=== PATIENT | male | born 1955 | race Caucasian/White ===

== ENCOUNTER 2022-06-16 14:49 | Inpatient (IN) | payer MEDICARE, MEDICAID, SELFPAY ==
--- NOTE | ~2022-06-16 | XR_ITS ---
EXAMINATION: XR ERCP DATE: 06/19/2022 13:58 INDICATION: Choledocholithiasis. TECHNIQUE: 4 spot fluoroscopic images of the right upper quadrant were obtained during endoscopic ret rograde cholangiopancreatography (ERCP). Fluoroscopy exposure time was 161 seconds. COMPARISON: MRCP 06/16/2022 FINDINGS: The endoscope is in the second portion the duodenum. There is opacification of the biliary tree with mild intrahepatic and extrahepatic biliary duct dilatation. There is balloon sweeping of th e common duct. IMPRESSION: 1. Mild intrahepatic and extrahepatic biliary duct dilatation. Please refer to the ERCP procedure not e for additional details. Reviewed, dictated and finalized at location A. IMPRESSION: 1. Mild intrahepatic and extrahepatic biliary duct dilatation. Please refer to the ERCP procedure note for additional details.
--- NOTE | ~2022-06-16 | XR_ITS ---
XR chest 1V DATE: 06/16/2022 13:02 INDICATION: Pneumonia follow-up TECHNIQUE: AP chest COMPARISON: None FINDINGS: This is a limited single AP view; the lung apices are partially obscured by overlying chin. Probable cardiomegaly; heart size is not optimally evaluated on AP projection because of magnificatio n. No pulmonary infiltrate or consolidation, pleural effusion or pulmonary vascular congestion or pneumo thorax is detected. IMPRESSION: Limited single portable AP view; cardiomegaly Reviewed, dictated and finalized at location B.
--- NOTE | ~2022-06-16 | MR_ITS ---
EXAMINATION: MR MRCP wo/w con/w 3D wo ind DATE: 06/16/2022 13:03 INDICATION: Abnormal liver function tests. Right upper quadrant abdominal pain. TECHNIQUE: Magnetic resonance imaging (MRI) of the abdomen was performed without and with 20 mL Multi Noam intravenous contrast. Sequences included coronal T2-weighted FS FSE, coronal T2-weighted FSE, a xial T1-weighted LAVA, coronal FS FIESTA, axial dual-echo T1-weighted SPGR, coronal lava-FLEX, sagitt al T2-weighted FSE, axial T2-weighted FSE, and axial DWI. Thick-slab T2-weighted FSE images were obta ined for magnetic resonance cholangiopancreatography (MRCP). Maximum intensity projection 3-D reconst ructions of the volumetric data were created by the technologist. Postcontrast sequences included cor onal LAVA-flex and time course of axial T1-weighted LAVA. COMPARISON: None. FINDINGS: ABDOMEN MRI: There is mild intrahepatic biliary duct dilatation. The gallbladder is normal in size an d contains gallstones. The spleen is normal. There is fat stranding around the pancreas, consistent w ith acute interstitial pancreatitis. The adrenal glands and kidneys are normal. There are no dilated loops of bowel. There are no pathologically enlarged lymph nodes. There is no free intraperitoneal fl uid. ABDOMEN MRCP: The common duct is dilated to 10 mm. There is a 4 mm stone in the common bile duct. IMPRESSION: 1. 4 mm stone in the common bile duct with mild intrahepatic and extrahepatic biliary duct dilatation . 2. Cholelithiasis. 3. Acute interstitial pancreatitis. Reviewed, dictated and finalized at location A. IMPRESSION: 1. 4 mm stone in the common bile duct with mild intrahepatic and extrahepatic b iliary duct dilatation. 2. Cholelithiasis. 3. Acute interstitial pancreatitis.
--- NOTE | 2022-06-16 10:10 | ADMGEN ---
This patient, Wilder Fabian, was admitted to Medical Room 256-. Patient/family oriented to hospital policies and general routines including ID bracelet, bed and alarms, visiting hours, pain management, procedures, bathroom and other care routines, personal items, smoking policy, room service/diet, and visiting hours. Information on how to activate the Rapid Response Team has been discussed. Patient/Family are encouraged to report perceived risks to care and to ask questions if they do not understand what they are told or what they should do.
[2022-06-16 10:11] VITALS: BP 123/63; PULSE 86; RESP 16; TEMP 36.6; O2SAT 100
[2022-06-16 12:00] VITALS: BP 125/50; PULSE 102; RESP 14; TEMP 36.4; O2SAT 100
--- NOTE | 2022-06-16 12:11 | PM.IMHP ---
H&P: HPI History of Present Illness Date/Time: 06/16/22 12:11 Chief Complaint: Abdominal pain Narrative: 66-year-old male with mental retardation, seizure disorder, history of left lower extremity DVT is admitted for as a transfer from [facility] where he was hospitalized from June 09 to June 16 with working diagnosis of transaminitis, acute cholecystitis/choledocholithiasis, elevated troponin. At the time of admission ALT 196, AST 329, total bilirubin 2.2, INR 1.6, WBC 6.7, troponin was 0.054. Per review of medical record troponin elevation was flat and considered to be noncardiac in origin. Transaminitis was originally attributed to possible cholecystitis cholelithiasis, but patient did have a positive hepatitis A IgM laboratory results and this was placed as a differential diagnosis. MRCP demonstrated a small stone in the common bile duct and transfer to [facility] for ERCP was recommended. Medical record also made note that LFT should be repeated in a couple of weeks and lap cholecystectomy would be offered after that if needed. Today, patient is sitting up in bed brother is bedside history is mostly provided by brother due to patient's mental status. He reports that on SundayJune 09 his brother was working at [employer] (his place of employment that provides work opportunities for people with special needs). While at work he was noted to have 2 seizure episodes and complained of burning epigastrium substernal pain. He had an associated episode of vomiting x1. After this incident patient was very lethargic and confused. Was taken to [facility] for further evaluation.(see above documentation) at this time patient is complaining of ongoing epigastric pain and substernal burning. He denies nausea, vomiting, chest pain, shortness of breath, headache, or other symptoms. Review of Systems Review of Systems: All systems reviewed & are unremarkable except as noted in HPI and below PMFSH Past Medical History Medical History (Updated 06/16/22 @ 14:48 by Jonelle Harkins MD) Abnormal finding of biliary tract History of Coumadin therapy History of deep venous thrombosis (DVT) of distal vein of left lower extremity Intellectual disability Seizure disorder Volvulus Surgical History Surgical History (Updated 06/16/22 @ 13:58 by Jonelle Harkins MD) Hx of abdominal surgery Social History Social History (Updated 06/16/22 @ 15:04 by Jonelle Harkins MD) Social History: lives w brother, good social support Smoking status: Never smoker Alcohol intake: never Substance use: never Spiritual care concerns: No Meds Home Medications and Allergies Home Medications Medication Instructions Recorded Confirmed Type furosemide 40 mg tablet 40 mg PO DAILY 06/16/22 06/16/22 History phenytoin sodium extended 100 mg 100 mg PO TID 06/16/22 06/16/22 History capsule potassium chloride 20 mEq 20 meq PO DAILY 06/16/22 06/16/22 History tablet,extended release warfarin 5 mg tablet 5 mg PO DIRECTED 06/16/22 06/16/22 History Allergies Allergy/AdvReac Type Severity Reaction Status Date / Time No Known Allergies Allergy Verified 06/16/22 14:18 Vital Signs Vital Signs - 24 hr 06/16/22 10:11 06/16/22 12:00 Temperature 97.9 F 97.5 F L Pulse Rate 86 102 H Respiratory Rate 16 14 Blood Pressure 123/63 125/50 L Pulse Oximetry 100 100 Exam Const: General: uncomfortable Other: cooperative HENMT: General nose exam: Normal nares present Mouth: Yes moist mucous membranes Eyes: General: appearance normal, both eyes and all related structures EOM: EOMs intact bilaterally Neck: Neck: supple and no JVD Thyroid: thyroid normal Resp: Effort & Inspection: normal respiratory effort Auscultation: crackles (at bases ) bilateral Cardio: Rate: regular rate Rhythm: regular rhythm GI: GI Palp: Yes Soft to palpation, Yes Tenderness to palpation pres
[2022-06-16 13:49] LABS: Basophils Percent Auto 0.4 % (0.2-1.2); Eosinophils Absolute Auto 0.1 K/mm3 (0-0.3); Eosinophils Percent Auto 0.7 % (0-4.4); Hematocrit 43.9 % (42.0-52.0); Hemoglobin 14.4 g/dL (14.0-18.0); Immature Granulocyte Absolute 0.04 K/mm3 (0.00-0.031); Immature Granulocyte Percent A 0.4 % (0-0.5); Lymphocytes Absolute Auto 1.01 K/mm3 (0.9-3.2); Lymphocytes Percent Auto 9.1 % (18.3-44.2); Mean Corpuscular HGB Conc 32.8 g/dl (32-36); Mean Corpuscular Hemoglobin 28.6 pg (26-34); Mean Corpuscular Volume 87.3 fl (80-100); Mean Platelet Volume 8.9 fl (7.4-10.4); Monocytes Absolute Auto 0.6 K/mm3 (0.1-0.6); Monocytes Percent Auto 5.6 % (2.6-8.5); Neutrophils Absolute Auto 9.3 K/mm3 (1.3-6.7); Neutrophils Percent Auto 83.8 % (45.5-73.1); Platelet Count Result 339 k/mm3 (150-375); Red Blood Count 5.03 M/mm3 (4.6-6.20); Red Cell Distribution Width 15.8 % (11.5-14.5); White Blood Count 11.1 K/mm3 (4.5-10.0)
[2022-06-16 14:00] LABS: INR 1.7; Prothrombin Time 18.9 Seconds (11.1-14.7)
[2022-06-16 14:07] LABS: NT Pro B Type Natriuretic Pept 219 pg/mL (5-100)
--- NOTE | 2022-06-16 14:24 | WPDGICN ---
Assessment and Plan Assessment and plan (1) Transaminitis: Code(s): R74.01 - Elevation of levels of liver transaminase levels Status: Acute Assessment and Plan: noted + HAV Igm at another hospital- this can explain elevated liver enzymes and consistent with acute hepatitis A will monitor liver enzymes and repeat blood work again there is also concern of cholelithiasis and outside imaging can not rule out small stone in bile duct, we will MRCP to reassess and exclude stone- if that is the case then entertain idea of ercp keep holding coumadin in case he will need to get intervention (also get INR) (2) Cholelithiases: Code(s): K80.20 - Calculus of gallbladder without cholecystitis without obstruction Status: Acute (3) Abnormal finding of biliary tract: Code(s): R19.8 - Other specified symptoms and signs involving the digestive system and abdomen Status: Acute Assessment and Plan: get mrcp to rule out choledocholithiasis (4) Abdominal pain: Code(s): R10.9 - Unspecified abdominal pain Status: Acute Assessment and Plan: could be from hepatitis A repeat blood work and will get imagin (5) Hepatitis A: Code(s): B15.9 - Hepatitis A without hepatic coma Status: Acute (6) Intellectual disability: Code(s): F79 - Unspecified intellectual disabilities Status: Acute (7) Seizure disorder: Code(s): G40.909 - Epilepsy, unspecified, not intractable, without status epilepticus Status: Acute (8) History of deep venous thrombosis (DVT) of distal vein of left lower extremity: Code(s): Z86.718 - Personal history of other venous thrombosis and embolism Status: Acute (9) History of Coumadin therapy: Code(s): Z92.29 - Personal history of other drug therapy Status: Acute GI Consult Note Consult date/time: 06/16/22 14:24 Reason for consult: elevated liver enzymes HPI: Wilder Fabian is a 66 year old male with mental retardation, use of coumadin who was taken to [facility] [place] on June 09 and stayed until today. He is poor historian but says that started with upper abdominal pain. Work up revealed elevated liver enzymes, at the time of admission ALT 196, AST 329, total bilirubin 2.2, INR 1.6, WBC 6.7, troponin was 0.054. CT scan showed possible acute cholecystitis.?Per review of medical record troponin elevation was flat and considered to be noncardiac in origin.? Transaminitis was originally attributed to possible cholecystitis and cholelithiasis, but also noted that had a positive hepatitis A IgM, MRCP day of admission showed possible small stone? in the common bile duct and transfer to [facility] because not GI physician on staff. Review of Systems Constitutional: Constitutional: Denies difficulty sleeping Eyes: Eyes: Denies blurry vision ENT: Reports Normal hearing present Cardiovascular: Cardiovascular: Denies chest pain Respiratory: Respiratory: Denies cough Gastrointestinal: Gastrointestinal: Reports abdominal pain and Reports nausea Genitourinary: Genitourinary: Denies hematuria Musculoskeletal: Musculoskeletal: Denies back pain Neurologic: Denies Abnormal speech present Psychiatric: Psychiatric: Reports anxiety [facility] Past Medical History Medical History (Updated 06/16/22 @ 14:32 by Ernesto Bermudez MD) Abnormal finding of biliary tract History of Coumadin therapy History of deep venous thrombosis (DVT) of distal vein of left lower extremity Intellectual disability Seizure disorder Volvulus Surgical History Surgical History (Updated 06/16/22 @ 13:58 by Jonelle Harkins MD) Hx of abdominal surgery Social History Social History Smoking status: Never smoker Spiritual care concerns: No Meds Home Medications and Allergies Home Medications Medication Instructions Recorded Confirmed Type furosemide 40 mg tablet 40 mg PO DAILY 06/16/22 06/16/22 His
[2022-06-16 14:32] LABS: Alanine Aminotransferase 552 U/L (6-50); Albumin Level 3.9 g/dL (3.5-5.1); Alkaline Phosphatase 371 U/L (38-126); Anion Gap 10 mmol/L (8-16); Aspartate Amino Transferase 371 U/L (17-59); Bilirubin Direct 2.9 mg/dL (0-0.3); Bilirubin,Total 6.1 mg/dL (0.2-1.3); Blood Urea Nitrogen 5 mg/dL (9-20); Calcium 9.3 mg/dL (8.4-10.2); Carbon Dioxide 24 mmol/L (22-30); Chloride 99 mmol/L (98-107); Estimated CRCL calculation 110 ml/min; Estimated Glomerular Filt Rate > 60; Glucose 141 mg/dL (65-110); Potassium 3.9 mmol/L (3.4-5.0); Sodium 133 mmol/L (137-145)
[2022-06-16] MEDS: ENOXAPARIN 120 MG/0.8 ML SYRINGE 115 MG SUB-Q (14:40)
[2022-06-16] MEDS: PANTOPRAZOLE SODIUM IV 40 MG VIAL IV PUSH (14:41)
[2022-06-16 15:16] LABS: Lipase 12658 U/L (23-300)
[2022-06-16 16:00] VITALS: PULSE 93
[2022-06-16] MEDS: HYDROcodone/acetaminophen (*CRX) 5-325 MG TABLET 1 TAB PO (16:12)
[2022-06-16] MEDS: LACTATED RINGERS 1,000 ML 100 ML IV CONT (16:13)
[2022-06-16] MEDS: PHENYTOIN SODIUM 100 MG EXTENDED RELEASE CAP PO (16:14)
[2022-06-16] MEDS: DOCUSATE SODIUM 100 MG CAPSULE PO (16:25)
[2022-06-16 16:40] LABS: HAV RESULT Negative (Negative)
[2022-06-16 17:21] VITALS: BP 142/60; PULSE 90; RESP 16; TEMP 36.3; O2SAT 99
[2022-06-16 19:18] VITALS: BP 130/51; PULSE 100; RESP 20; TEMP 36.9; O2SAT 96
[2022-06-16 20:00] VITALS: PULSE 89
[2022-06-17] VITALS (9 sets, daily range): BP systolic 116–158; BP diastolic 51–92; PULSE 91–122; RESP 20–26; TEMP 36.6–37.1; O2SAT 95–100
[2022-06-17] MEDS: LACTATED RINGERS 1,000 ML 100 ML IV CONT (03:22)
[2022-06-17] MEDS: ENOXAPARIN 120 MG/0.8 ML SYRINGE 115 MG SUB-Q ×2 (05:10→17:06)
[2022-06-17 06:29] LABS: Basophils Absolute Auto 0.1 K/mm3 (0.0-0.1); Basophils Percent Auto 0.6 % (0.2-1.2); Eosinophils Absolute Auto 0.2 K/mm3 (0-0.3); Eosinophils Percent Auto 1.8 % (0-4.4); Hematocrit 45.3 % (42.0-52.0); Hemoglobin 14.2 g/dL (14.0-18.0); Immature Granulocyte Absolute 0.07 K/mm3 (0.00-0.031); Immature Granulocyte Percent A 0.6 % (0-0.5); Lymphocytes Absolute Auto 1.19 K/mm3 (0.9-3.2); Lymphocytes Percent Auto 9.6 % (18.3-44.2); Mean Corpuscular HGB Conc 31.3 g/dl (32-36); Mean Corpuscular Hemoglobin 28.6 pg (26-34); Mean Corpuscular Volume 91.3 fl (80-100); Mean Platelet Volume 9.1 fl (7.4-10.4); Monocytes Absolute Auto 1.1 K/mm3 (0.1-0.6); Monocytes Percent Auto 9.2 % (2.6-8.5); Neutrophils Absolute Auto 9.6 K/mm3 (1.3-6.7); Neutrophils Percent Auto 78.2 % (45.5-73.1); Platelet Count Result 306 k/mm3 (150-375); Red Blood Count 4.96 M/mm3 (4.6-6.20); Red Cell Distribution Width 16.5 % (11.5-14.5); White Blood Count 12.3 K/mm3 (4.5-10.0)
[2022-06-17 06:38] LABS: Hemoglobin A1C 5.4 % (<5.7)
[2022-06-17 07:02] LABS: Alanine Aminotransferase 390 U/L (6-50); Albumin Level 3.4 g/dL (3.5-5.1); Alkaline Phosphatase 336 U/L (38-126); Anion Gap 12 mmol/L (8-16); Aspartate Amino Transferase 257 U/L (17-59); Bilirubin,Total 7.5 mg/dL (0.2-1.3); Blood Urea Nitrogen 6 mg/dL (9-20); Calcium 8.7 mg/dL (8.4-10.2); Carbon Dioxide 19 mmol/L (22-30); Chloride 102 mmol/L (98-107); Estimated CRCL calculation 110 ml/min; Estimated Glomerular Filt Rate > 60; Glucose 114 mg/dL (65-110); Potassium 4.8 mmol/L (3.4-5.0); Sodium 133 mmol/L (137-145)
[2022-06-17 07:28] LABS: CRP 16.6 mg/dL (<1.0)
--- NOTE | 2022-06-17 07:33 | PM.IMPN ---
Progress Note: A&P Assessment and Plan (1) Acute gallstone pancreatitis: Code(s): K85.10 - Biliary acute pancreatitis without necrosis or infection Status: Acute (2) Choledocholithiasis with acute cholecystitis with obstruction: Code(s): K80.43 - Calculus of bile duct with acute cholecystitis with obstruction Status: Acute (3) Abnormal finding of biliary tract: Code(s): R19.8 - Other specified symptoms and signs involving the digestive system and abdomen Status: Acute (4) History of Coumadin therapy: Code(s): Z92.29 - Personal history of other drug therapy Status: Acute (5) Abdominal pain: Code(s): R10.9 - Unspecified abdominal pain Status: Acute (6) Hepatitis A: Code(s): B15.9 - Hepatitis A without hepatic coma Status: Acute (7) Transaminitis: Code(s): R74.01 - Elevation of levels of liver transaminase levels Status: Acute (8) Intellectual disability: Code(s): F79 - Unspecified intellectual disabilities Status: Acute (9) Seizure disorder: Code(s): G40.909 - Epilepsy, unspecified, not intractable, without status epilepticus Status: Acute (10) History of deep venous thrombosis (DVT) of distal vein of left lower extremity: Code(s): Z86.718 - Personal history of other venous thrombosis and embolism Status: Acute Plan 66-year-old male transferred from [facility] for ongoing treatment of suspected choledocholithiasis/cholecystitis. Outside facility requesting ERCP. Admit to med surge Diet NPO except for meds HIDA scan MRCP Zofran Tylenol, Percocet, morphine Pantoprazole b.i.d. Zosyn t.i.d. LR 100 cc/hour Docusate b.i.d. Blood cultures CBC Lipase CMP Direct bilirubin Hepatitis A PT INR Alk-phos BNP Magnesium Consult GI Activity up with assistance 06/17/22 pt w initial PE findings consistent w Acute Pancreatitis confirmed on labs his enzymes are again down trending and today he is w benign abd exam. I strongly suspect he has passed another stone. Unclear if he has cholecystitis or just choledocholithiasis w pancreatic injury. His WBC remains elevated. GI following, defer surgical consent to GI if they believe pt should be evaluated for lap medina cont current care serial labs pain medications PRN cont home meds LMWH substitiued for Warfarin until dc planning initiated IVFs abx GI recs appreciated Subjective Date/time seen: 06/17/22 07:33 pt feeling much better today, denies epigstric pain, per RN coloring in his book, has not reported pain. Review of Systems Review of Systems: All systems reviewed & are unremarkable except as noted in HPI and below Exam Const: General: uncomfortable Other: cooperative HENMT: General nose exam: Normal nares present Mouth: Yes moist mucous membranes Eyes: General: appearance normal, both eyes and all related structures EOM: EOMs intact bilaterally Neck: Neck: supple and no JVD Thyroid: thyroid normal Resp: Effort & Inspection: normal respiratory effort Auscultation: crackles (at bases ) bilateral Cardio: Rate: regular rate Rhythm: regular rhythm GI: Other: soft, nontender, (prior exam pt was exquisitely tender in Epigstric area), ND Skin: General skin exam: normal color, no rashes or lesions noted and no erythema Wounds: no wounds Neuro: Speech: normal speech Motor exam (neuro): Normal motor muscle tone present throughout and abnormal movements noted Extrem: General: normal to inspection Psych: Mental Status: mental status grossly abnormal (pt w intellectual delay unable to eval psych but mood and affect congruent ) Objective Data Vital Signs Vital Signs: Vital Signs - 24 hr 06/16/22 10:11 06/16/22 12:00 06/16/22 10:10 Temperature 97.9 F 97.5 F L Pulse Rate 86 102 H Respiratory Rate 16 14 Blood Pressure 123/63 125/50 L Pulse Oximetry 100 100 Oxygen Delivery Ro
--- NOTE | 2022-06-17 08:38 | WPDGIPROGNO ---
Progress Note: A&P Assessment and Plan (1) Transaminitis: Code(s): R74.01 - Elevation of levels of liver transaminase levels Status: Acute Assessment and Plan: Although he was found have positive hepatitis a serology at [facility], he also was noted to have a stone in the bile duct. It is my understanding that he was referred here to have an ERCP. For that reason Coumadin is being held. (2) Abnormal finding of biliary tract: Code(s): R19.8 - Other specified symptoms and signs involving the digestive system and abdomen Status: Acute Assessment and Plan: MRCP done yesterday does confirm common bile duct stone. He also has pancreatitis. (3) Abdominal pain: Code(s): R10.9 - Unspecified abdominal pain Status: Acute Assessment and Plan: Lipase came back extremely elevated, therefore his pain is likely due primarily to pancreatitis and or choledocholithiasis (4) Hepatitis A: Code(s): B15.9 - Hepatitis A without hepatic coma Status: Acute (5) Seizure disorder: Code(s): G40.909 - Epilepsy, unspecified, not intractable, without status epilepticus Status: Acute (6) History of deep venous thrombosis (DVT) of distal vein of left lower extremity: Code(s): Z86.718 - Personal history of other venous thrombosis and embolism Status: Acute Assessment and Plan: he has been on Coumadin but this is being held so that ERCP can be done. (7) History of Coumadin therapy: Code(s): Z92.29 - Personal history of other drug therapy Status: Acute (8) Acute gallstone pancreatitis: Code(s): K85.10 - Biliary acute pancreatitis without necrosis or infection Status: Acute Assessment and Plan: Lipase was extremely elevated yesterday. I will order repeat for today. Subjective Date/time seen: 06/17/22 08:38 The patient is resting comfortably. He has no complaints at the present time. He admits that his belly is sore. He is unable to tell me if his urine is dark except that it sometimes is I told that he has gallstones in his bile duct that will need to be removed and that tentatively is scheduled for Sunday. Exam Const: General: comfortable HENMT: General nose exam: Normal nares present Eyes: General: appearance normal, both eyes and all related structures Neck: Neck: supple Resp: Auscultation: clear to auscultation bilaterally Cardio: Rate: regular rate GI: Auscultation: normal bowel sounds Skin: Other: jaundice Neuro: Cranial nerves: Yes Normal hearing present Speech: normal speech and No Abnormal speech present Motor exam (neuro): 5/5 motor strength present throughout Extrem: General: normal to inspection Objective Data Vital Signs Vital Signs: Vital Signs - 24 hr 06/16/22 10:11 06/16/22 12:00 06/16/22 10:10 Temperature 36.6 C 36.4 C L Pulse Rate 86 102 H Respiratory Rate 16 14 Blood Pressure 123/63 125/50 L Pulse Oximetry 100 100 Oxygen Delivery Room Air 06/16/22 16:00 06/16/22 17:21 06/16/22 19:18 Temperature 36.3 C L 36.9 C Pulse Rate 93 90 100 Respiratory Rate 16 20 Blood Pressure 142/60 H 130/51 L Pulse Oximetry 99 96 Oxygen Delivery 06/16/22 20:00 06/16/22 20:00 06/17/22 00:00 Temperature Pulse Rate 89 91 Respiratory Rate Blood Pressure Pulse Oximetry Oxygen Delivery Room Air 06/17/22 04:07 06/17/22 04:00 Temperature 37.1 C Pulse Rate 102 H 104 H Respiratory Rate 26 H Blood Pressure 144/56 H Pulse Oximetry 99 Oxygen Delivery Intake/Output Intake/Output: Intake & Output 06/14/22 06/15/22 06/16/22 06/17/22 23:59 23:59 23:59 23:59 Intake Total 100 1050 Output Total 150 400 Balance -50 650 Meds/Results Medications: Active Medications Generic Name Dose Route Start Last Admin Trade Name Freq PRN Reason Stop Dose Admin Al Hydrox/Mg Hydrox/Simethicone 30 ml 06/16/22 14:49 Mag Hy
[2022-06-17 08:53] LABS: INR 1.8; Prothrombin Time 20.4 Seconds (11.1-14.7)
[2022-06-17 09:05] LABS: Lipase 2913 U/L (23-300)
[2022-06-17] MEDS: LACTATED RINGERS 1,000 ML 150 ML IV CONT ×3 (09:06→19:52)
[2022-06-17] MEDS: PHENYTOIN SODIUM 100 MG EXTENDED RELEASE CAP PO ×3 (09:06→17:06)
[2022-06-17] MEDS: DOCUSATE SODIUM 100 MG CAPSULE PO (09:06)
[2022-06-17] MEDS: PANTOPRAZOLE SODIUM IV 40 MG VIAL IV PUSH (09:06)
[2022-06-17 11:21] LABS: Cholesterol 203 mg/dL (0-200); HDL Direct 19 mg/dL; Triglycerides 146 mg/dL (<150)
[2022-06-17 11:32] LABS: LDL Cholesterol Direct 131 mg/dL
[2022-06-18] VITALS (9 sets, daily range): BP systolic 113–132; BP diastolic 46–66; PULSE 73–113; RESP 18–20; TEMP 36.1–36.9; O2SAT 95–98
--- NOTE | 2022-06-18 00:08 | PC.NURSE ---
Pt ambulated to bathroom with refrigeration technician and had a bowel movement. Upon standing up from the toilet the pt stated he needed to sit down and proceeded to have an approximately 30 second period of unresponsiveness characterized by blank staring. After 30 seconds he started responding again and stated he felt better. Patient's blood pressure was recorded after not responding and was 98/51. After getting the patient back to the bed and lying down his blood pressure was recorded at 116/51. Dr. Oliveros notified.
[2022-06-18] MEDS: LACTATED RINGERS 1,000 ML 150 ML IV CONT (03:08)
[2022-06-18] MEDS: ENOXAPARIN 120 MG/0.8 ML SYRINGE 115 MG SUB-Q ×2 (05:00→17:14)
[2022-06-18 05:52] LABS: Alanine Aminotransferase 281 U/L (6-50); Albumin Level 3.3 g/dL (3.5-5.1); Alkaline Phosphatase 269 U/L (38-126); Anion Gap 7 mmol/L (8-16); Aspartate Amino Transferase 88 U/L (17-59); Bilirubin,Total 3.8 mg/dL (0.2-1.3); Blood Urea Nitrogen 9 mg/dL (9-20); Calcium 9.2 mg/dL (8.4-10.2); Carbon Dioxide 25 mmol/L (22-30); Chloride 100 mmol/L (98-107); Estimated CRCL calculation 110 ml/min; Estimated Glomerular Filt Rate > 60; Glucose 127 mg/dL (65-110); Lipase 509 U/L (23-300); Potassium 3.7 mmol/L (3.4-5.0); Sodium 132 mmol/L (137-145)
[2022-06-18 06:27] LABS: Basophils Absolute Auto 0.1 K/mm3 (0.0-0.1); Basophils Percent Auto 0.5 % (0.2-1.2); Eosinophils Absolute Auto 0.4 K/mm3 (0-0.3); Eosinophils Percent Auto 3.8 % (0-4.4); Hematocrit 38.8 % (42.0-52.0); Hemoglobin 12.7 g/dL (14.0-18.0); Immature Granulocyte Absolute 0.08 K/mm3 (0.00-0.031); Immature Granulocyte Percent A 0.7 % (0-0.5); Lymphocytes Percent Auto 15.5 % (18.3-44.2); Mean Corpuscular HGB Conc 32.7 g/dl (32-36); Mean Corpuscular Hemoglobin 28.5 pg (26-34); Mean Corpuscular Volume 87.2 fl (80-100); Mean Platelet Volume 9.3 fl (7.4-10.4); Monocytes Absolute Auto 0.7 K/mm3 (0.1-0.6); Monocytes Percent Auto 6.6 % (2.6-8.5); Neutrophils Percent Auto 72.9 % (45.5-73.1); Platelet Count Result 323 k/mm3 (150-375); Red Blood Count 4.45 M/mm3 (4.6-6.20)
--- NOTE | 2022-06-18 07:57 | PC.NURSE ---
spoke with Dr. Ervin to confirm that ERCP will be on Sunday06/18/22 because pharmacy wanted to know when to order patient's suppository.
[2022-06-18] MEDS: ONDANSETRON INJ 4 MG/2 ML VIAL IV PUSH (08:06)
--- NOTE | 2022-06-18 08:09 | PM.IMPN ---
Progress Note: A&P Assessment and Plan (1) Acute gallstone pancreatitis: Code(s): K85.10 - Biliary acute pancreatitis without necrosis or infection Status: Acute (2) Choledocholithiasis with acute cholecystitis with obstruction: Code(s): K80.43 - Calculus of bile duct with acute cholecystitis with obstruction Status: Acute (3) Abnormal finding of biliary tract: Code(s): R19.8 - Other specified symptoms and signs involving the digestive system and abdomen Status: Acute (4) History of Coumadin therapy: Code(s): Z92.29 - Personal history of other drug therapy Status: Acute (5) Abdominal pain: Code(s): R10.9 - Unspecified abdominal pain Status: Acute (6) Hepatitis A: Code(s): B15.9 - Hepatitis A without hepatic coma Status: Acute (7) Transaminitis: Code(s): R74.01 - Elevation of levels of liver transaminase levels Status: Acute (8) Intellectual disability: Code(s): F79 - Unspecified intellectual disabilities Status: Acute (9) Seizure disorder: Code(s): G40.909 - Epilepsy, unspecified, not intractable, without status epilepticus Status: Acute (10) History of deep venous thrombosis (DVT) of distal vein of left lower extremity: Code(s): Z86.718 - Personal history of other venous thrombosis and embolism Status: Acute Plan 66-year-old male transferred from [facility] for ongoing treatment of suspected choledocholithiasis/cholecystitis. Outside facility requesting ERCP. Admit to med surge Diet NPO except for meds HIDA scan MRCP Zofran Tylenol, Percocet, morphine Pantoprazole b.i.d. Zosyn t.i.d. LR 100 cc/hour Docusate b.i.d. Blood cultures CBC Lipase CMP Direct bilirubin Hepatitis A PT INR Alk-phos BNP Magnesium Consult GI Activity up with assistance 06/17/22 pt w initial PE findings consistent w Acute Pancreatitis confirmed on labs his enzymes are again down trending and today he is w benign abd exam. I strongly suspect he has passed another stone. Unclear if he has cholecystitis or just choledocholithiasis w pancreatic injury. His WBC remains elevated. GI following, defer surgical consent to GI if they believe pt should be evaluated for lap medina cont current care serial labs pain medications PRN cont home meds LMWH substitiued for Warfarin until dc planning initiated IVFs abx GI recs appreciated 06/18/22 bilious vomiting approx 200cc per RN this am (not associated w medication administration) lipase and liver enzymes normalizing cont supportive care cont abx Zosyn IVFs run rate decreased to LR 75cchr cont NPO ERCP tomorrow Subjective Date/time seen: 06/18/22 08:09 pt w nausea this morning and placed back into NPO by GI, however, he reports he is feeling better at time of my visit per RN vomitus was bilious appearing Review of Systems Review of Systems: All systems reviewed & are unremarkable except as noted in HPI and below Exam Const: General: comfortable Other: cooperative HENMT: General nose exam: Normal nares present Mouth: Yes moist mucous membranes Eyes: General: appearance normal, both eyes and all related structures EOM: EOMs intact bilaterally Neck: Neck: supple and no JVD Thyroid: thyroid normal Resp: Effort & Inspection: normal respiratory effort Auscultation: crackles (at bases ) bilateral Cardio: Rate: regular rate Rhythm: regular rhythm GI: Other: soft, nontender, (prior exam pt was exquisitely tender in Epigstric area), ND Skin: General skin exam: normal color, no rashes or lesions noted and no erythema Wounds: no wounds Neuro: Speech: normal speech Motor exam (neuro): Normal motor muscle tone present throughout and abnormal movements noted Extrem: General: normal to inspection Psych: Mental Status: mental status grossly abnormal (pt w intellectual delay unable to eval psych but mood and af
[2022-06-18] MEDS: PANTOPRAZOLE SODIUM IV 40 MG VIAL IV PUSH (09:20)
[2022-06-18] MEDS: PHENYTOIN SODIUM 100 MG EXTENDED RELEASE CAP PO ×3 (09:20→17:14)
[2022-06-18] MEDS: LACTATED RINGERS 1,000 ML 75 ML IV CONT ×2 (09:27→12:22)
[2022-06-18 09:39] LABS: INR 1.7; Prothrombin Time 18.9 Seconds (11.1-14.7)
--- NOTE | 2022-06-18 09:53 | WPDGIPROGNO ---
Progress Note: A&P Assessment and Plan (1) Transaminitis: Code(s): R74.01 - Elevation of levels of liver transaminase levels Status: Acute Assessment and Plan: Although he was found have positive hepatitis a serology at [facility], he also was noted to have a stone in the bile duct. It is my understanding that he was referred here to have an ERCP. For that reason Coumadin is being held. 06/18/2022 AST is down to 88 ALT down to 281 and bilirubin has dropped to 3.8. (2) Abnormal finding of biliary tract: Code(s): R19.8 - Other specified symptoms and signs involving the digestive system and abdomen Status: Acute Assessment and Plan: MRCP done yesterday does confirm common bile duct stone. He also has pancreatitis. 06/18/2022 given the drop in his transaminases and his bilirubin, I suspect that he may have passed the stone seen on MRCP. Orders have been left for ERCP tomorrow (3) Abdominal pain: Code(s): R10.9 - Unspecified abdominal pain Status: Acute Assessment and Plan: Lipase came back extremely elevated, therefore his pain is likely due primarily to pancreatitis and or choledocholithiasis 06/18/2022 denies any pain today (4) Hepatitis A: Code(s): B15.9 - Hepatitis A without hepatic coma Status: Acute (5) Seizure disorder: Code(s): G40.909 - Epilepsy, unspecified, not intractable, without status epilepticus Status: Acute (6) History of deep venous thrombosis (DVT) of distal vein of left lower extremity: Code(s): Z86.718 - Personal history of other venous thrombosis and embolism Status: Acute Assessment and Plan: he has been on Coumadin but this is being held so that ERCP can be done. 06/18/2022 Coumadin has been held. INR is still 1.7. If still elevated tomorrow, he may need FFP prior to ERCP (7) History of Coumadin therapy: Code(s): Z92.29 - Personal history of other drug therapy Status: Acute Assessment and Plan: INR still elevated at 1.7 (8) Acute gallstone pancreatitis: Code(s): K85.10 - Biliary acute pancreatitis without necrosis or infection Status: Acute Assessment and Plan: Lipase was extremely elevated yesterday. I will order repeat for today. Subjective Date/time seen: 06/18/22 09:53 today he is comfortable. He denies abdominal pain. His jaundice seems to be resolving consistent with a drop in his bilirubin. He is tentatively scheduled for ERCP tomorrow by Dr. Swift. Exam Const: General: comfortable HENMT: General nose exam: Normal nares present Eyes: General: appearance normal, both eyes and all related structures Neck: Neck: supple Resp: Auscultation: clear to auscultation bilaterally Cardio: Rate: regular rate GI: Auscultation: normal bowel sounds Skin: Other: jaundice, but less noticeable Neuro: Cranial nerves: Yes Normal hearing present Speech: normal speech and No Abnormal speech present Motor exam (neuro): 5/5 motor strength present throughout Extrem: General: normal to inspection Objective Data Vital Signs Vital Signs: Vital Signs - 24 hr 06/17/22 13:41 06/17/22 12:00 06/17/22 16:00 Temperature 36.6 C Pulse Rate 107 H 100 111 H Respiratory Rate 20 Blood Pressure 158/92 H Pulse Oximetry 100 Oxygen Delivery 06/17/22 19:40 06/17/22 20:00 06/17/22 20:00 Temperature 36.7 C Pulse Rate 91 122 H Respiratory Rate 20 Blood Pressure 116/51 L Pulse Oximetry 95 Oxygen Delivery Room Air 06/18/22 00:00 06/18/22 04:00 06/18/22 04:41 Temperature 36.9 C Pulse Rate 113 H 84 79 Respiratory Rate 20 Blood Pressure 130/57 L Pulse Oximetry 95 Oxygen Delivery Intake/Output Intake/Output: Intake & Output 06/15/22 06/16/22 06/17/22 06/18/22 23:59 23:59 23:59 23:59 Intake Total 100 4200 2150 Output Total 150 1000 875 Balance -50 3200 1275 Meds/Results Medic
[2022-06-19] VITALS (17 sets, daily range): BP systolic 120–154; BP diastolic 53–75; PULSE 72–84; RESP 18–26; TEMP 35.7–36.6; O2SAT 98–100
[2022-06-19] MEDS: LACTATED RINGERS 1,000 ML 75 ML IV CONT ×2 (02:46→20:07)
[2022-06-19] MEDS: oxyCODONE HCL (*CRX) 5 MG TAB IR PO (02:51)
[2022-06-19] MEDS: ENOXAPARIN 120 MG/0.8 ML SYRINGE 115 MG SUB-Q (05:00)
[2022-06-19] MEDS: DOCUSATE SODIUM 100 MG CAPSULE PO ×2 (08:18→16:40)
[2022-06-19] MEDS: PANTOPRAZOLE SODIUM IV 40 MG VIAL IV PUSH (08:18)
[2022-06-19] MEDS: PHENYTOIN SODIUM 100 MG EXTENDED RELEASE CAP PO ×2 (08:18→16:40)
--- NOTE | 2022-06-19 09:46 | PM.IMPN ---
Progress Note: A&P Assessment and Plan (1) Acute gallstone pancreatitis: Code(s): K85.10 - Biliary acute pancreatitis without necrosis or infection Status: Acute (2) Choledocholithiasis with acute cholecystitis with obstruction: Code(s): K80.43 - Calculus of bile duct with acute cholecystitis with obstruction Status: Acute (3) Abnormal finding of biliary tract: Code(s): R19.8 - Other specified symptoms and signs involving the digestive system and abdomen Status: Acute (4) History of Coumadin therapy: Code(s): Z92.29 - Personal history of other drug therapy Status: Acute (5) Abdominal pain: Code(s): R10.9 - Unspecified abdominal pain Status: Acute (6) Hepatitis A: Code(s): B15.9 - Hepatitis A without hepatic coma Status: Acute (7) Transaminitis: Code(s): R74.01 - Elevation of levels of liver transaminase levels Status: Acute (8) Intellectual disability: Code(s): F79 - Unspecified intellectual disabilities Status: Acute (9) Seizure disorder: Code(s): G40.909 - Epilepsy, unspecified, not intractable, without status epilepticus Status: Acute (10) History of deep venous thrombosis (DVT) of distal vein of left lower extremity: Code(s): Z86.718 - Personal history of other venous thrombosis and embolism Status: Acute Plan 66-year-old male transferred from [facility] for ongoing treatment of suspected choledocholithiasis/cholecystitis. Outside facility requesting ERCP. Admit to med surge Diet NPO except for meds HIDA scan MRCP Zofran Tylenol, Percocet, morphine Pantoprazole b.i.d. Zosyn t.i.d. LR 100 cc/hour Docusate b.i.d. Blood cultures CBC Lipase CMP Direct bilirubin Hepatitis A PT INR Alk-phos BNP Magnesium Consult GI Activity up with assistance 06/17/22 pt w initial PE findings consistent w Acute Pancreatitis confirmed on labs his enzymes are again down trending and today he is w benign abd exam. I strongly suspect he has passed another stone. Unclear if he has cholecystitis or just choledocholithiasis w pancreatic injury. His WBC remains elevated. GI following, defer surgical consent to GI if they believe pt should be evaluated for lap mednia cont current care serial labs pain medications PRN cont home meds LMWH substitiued for Warfarin until dc planning initiated IVFs abx GI recs appreciated 06/18/22 bilious vomiting approx 200cc per RN this am (not associated w medication administration) lipase and liver enzymes normalizing cont supportive care cont abx Zosyn IVFs run rate decreased to LR 75cchr cont NPO ERCP tomorrow 06/19/22 doing well pending ERCP cont abx cont IVFs cont supportive care Subjective Date/time seen: 06/19/22 09:46 doing ok no complaints at time of my exam Review of Systems Review of Systems: All systems reviewed & are unremarkable except as noted in HPI and below Exam Const: General: comfortable Other: cooperative HENMT: General nose exam: Normal nares present Mouth: Yes moist mucous membranes Eyes: General: appearance normal, both eyes and all related structures EOM: EOMs intact bilaterally Neck: Neck: supple and no JVD Resp: Effort & Inspection: normal respiratory effort Other: symmetric chest rise GI: Inspection: non-distended GI Palp: Yes Soft to palpation, No Firmness to palpation present (GI), No Tenderness to palpation present (GI), No Guarding due to palpation present (GI) and No Hernia present Other: soft, nontender, (prior exam pt was exquisitely tender in Epigstric area), ND Urinary Catheter: Urinary Catheter: urine dark (in urinal at bedside ) Skin: General skin exam: normal color, no rashes or lesions noted and no erythema Wounds: no wounds Neuro: Speech: normal speech Motor exam (neuro): Normal motor muscle tone present throughout and abnormal movements noted E
[2022-06-19 10:18] LABS: Basophils Absolute Auto 0.1 K/mm3 (0.0-0.1); Basophils Percent Auto 0.7 % (0.2-1.2); Eosinophils Absolute Auto 0.5 K/mm3 (0-0.3); Eosinophils Percent Auto 5.9 % (0-4.4); Hematocrit 38.6 % (42.0-52.0); Hemoglobin 12.3 g/dL (14.0-18.0); Immature Granulocyte Absolute 0.04 K/mm3 (0.00-0.031); Immature Granulocyte Percent A 0.5 % (0-0.5); Lymphocytes Absolute Auto 2.41 K/mm3 (0.9-3.2); Lymphocytes Percent Auto 28.5 % (18.3-44.2); Mean Corpuscular HGB Conc 31.9 g/dl (32-36); Mean Corpuscular Hemoglobin 28.4 pg (26-34); Mean Corpuscular Volume 89.1 fl (80-100); Mean Platelet Volume 8.8 fl (7.4-10.4); Monocytes Absolute Auto 0.4 K/mm3 (0.1-0.6); Monocytes Percent Auto 4.7 % (2.6-8.5); Neutrophils Absolute Auto 5.1 K/mm3 (1.3-6.7); Neutrophils Percent Auto 59.7 % (45.5-73.1); Platelet Count Result 318 k/mm3 (150-375); Red Blood Count 4.33 M/mm3 (4.6-6.20); Red Cell Distribution Width 15.6 % (11.5-14.5); White Blood Count 8.5 K/mm3 (4.5-10.0)
[2022-06-19 10:30] LABS: Alanine Aminotransferase 162 U/L (6-50); Albumin Level 3.2 g/dL (3.5-5.1); Alkaline Phosphatase 211 U/L (38-126); Anion Gap 6 mmol/L (8-16); Aspartate Amino Transferase 54 U/L (17-59); Bilirubin,Total 2.3 mg/dL (0.2-1.3); Blood Urea Nitrogen 10 mg/dL (9-20); Calcium 8.5 mg/dL (8.4-10.2); Carbon Dioxide 25 mmol/L (22-30); Chloride 101 mmol/L (98-107); Estimated CRCL calculation 143 ml/min; Estimated Glomerular Filt Rate > 60; Glucose 94 mg/dL (65-110); Magnesium 2.1 mg/dL (1.6-2.3); Potassium 3.3 mmol/L (3.4-5.0); Sodium 132 mmol/L (137-145)
--- NOTE | 2022-06-19 10:44 | WPDANESEPPF ---
Anes - Initial Pre Proc Eval Procedure: Operation Date: 06/19/22 14:15 Proposed Procedures p Endoscopic Retro Cholangiopancreatogram - Ernesto Bermudez MD Date/Time: 06/19/22 10:44 Surgeon: Vidal Oliveros MD Pre Op Diagnosis: Choledocholithiasis w Telemetry Patient Data Age: 66 Gender: M Height: 1.88 m Weight: 115.3 kg Last Vital Signs Temp 35.7 C L 06/19/22 03:53 Pulse 79 06/19/22 08:00 Resp 20 06/19/22 03:53 BP 124/60 06/19/22 03:53 Pulse Ox 98 06/19/22 03:53 O2 Del Method Room Air 06/19/22 07:49 Allergies Allergy/AdvReac Type Severity Reaction Status Date / Time No Known Allergies Allergy Verified 06/19/22 12:58 Home Medications Medication Instructions Recorded Confirmed Type furosemide 40 mg tablet 40 mg PO DAILY 06/16/22 06/16/22 History phenytoin sodium extended 100 mg 100 mg PO TID 06/16/22 06/16/22 History capsule potassium chloride 20 mEq 20 meq PO DAILY 06/16/22 06/16/22 History tablet,extended release warfarin 5 mg tablet 5 mg PO DIRECTED 06/16/22 06/16/22 History Laboratory Tests 06/19/22 06/19/22 10:13 10:13 WBC 8.5 K/mm3 K/mm3 (4.5-10.0) RBC 4.33 M/mm3 L M/mm3 (4.6-6.20) Hgb 12.3 g/dL L g/dL (14.0-18.0) Hct 38.6 % L % (42.0-52.0) MCV 89.1 fl fl (80-100) MCH 28.4 pg pg (26-34) MCHC 31.9 g/dl L g/dl (32-36) RDW 15.6 % H % (11.5-14.5) Plt Count 318 k/mm3 k/mm3 (150-375) MPV 8.8 fl fl (7.4-10.4) Immature Gran % (Auto) 0.5 % % (0-0.5) Neut % (Auto) 59.7 % % (45.5-73.1) Lymph % (Auto) 28.5 % % (18.3-44.2) [place] % (Auto) 4.7 % % (2.6-8.5) Eos % (Auto) 5.9 % H % (0-4.4) Baso % (Auto) 0.7 % % (0.2-1.2) Lymph # (Auto) 2.41 K/mm3 K/mm3 (0.9-3.2) [place] # (Auto) 0.4 K/mm3 K/mm3 (0.1-0.6) Eos # (Auto) 0.5 K/mm3 H K/mm3 (0-0.3) Baso # (Auto) 0.1 K/mm3 K/mm3 (0.0-0.1) Abs Immat Gran (auto) 0.04 K/mm3 H K/mm3 (0.00-0.031) Absolute Neuts (auto) 5.1 K/mm3 K/mm3 (1.3-6.7) Absolute Nucleated RBC 0.0 K/mm3 K/mm3 (0.0-0.012) Nucleated RBC % 0.0 % % (0.0-0.2) Sodium 132 mmol/L L mmol/L (137-145) Potassium 3.3 mmol/L L mmol/L (3.4-5.0) Chloride 101 mmol/L mmol/L (98-107) Carbon Dioxide 25 mmol/L mmol/L (22-30) Anion Gap 6 mmol/L L mmol/L (8-16) BUN 10 mg/dL mg/dL (9-20) Creatinine 0.60 mg/dL L mg/dL (0.7-1.3) Estim Creat Clear Calc 143 ml/min ml/min Estimated GFR > 60 (59 - ) Glucose 94 mg/dL mg/dL (65-110) Calcium 8.5 mg/dL mg/dL (8.4-10.2) Magnesium 2.1 mg/dL mg/dL (1.6-2.3) Total Bilirubin 2.3 mg/dL H mg/dL (0.2-1.3) AST 54 U/L U/L (17-59) ALT 162 U/L H U/L (6-50) Alkaline Phosphatase 211 U/L H U/L (38-126) Total Protein 7.0 g/dL g/dL (6.3-8.2) Albumin 3.2 g/dL L g/dL (3.5-5.1) Patient hx anesthesia problems: none Family hx anesthesia problems: none Results Review: All pre-operative results and documents have been reviewed as part of the pre-operative evaluation. [facility] Past Medical History Medical History (Updated 06/17/22 @ 07:37 by Jonelle Harkins MD) Abnormal finding of biliary tract History of Coumadin therapy History of deep venous thrombosis (DVT) of distal vein of left lower extremity Intellectual disability Seizure disorder Volvulus Surgical History Surgical History (Updated 06/16/22 @ 13:58 by Jonelle Harkins MD) Hx of abdominal surgery Social History Social History (Updated 06/16/22 @ 15:04 by Jonelle Harkins MD) Social History: lives w brother, good social support Smoking status: Never smoker Alcohol intake: never Substance use: never Spiritual care concerns: No Anes - Eval Final PreProcedure Day of Procedure 06/19/22
[2022-06-19] MEDS: LACTATED RINGERS 1,000 ML 150 ML IV CONT (13:07)
[2022-06-19] MEDS: INDOMETHACIN 50 MG SUPP.RECT RECTAL (13:23)
--- NOTE | 2022-06-19 14:31 | PM.CNGS ---
Assessment and Plan Assessment and plan (1) Choledocholithiasis with acute cholecystitis with obstruction: Code(s): K80.43 - Calculus of bile duct with acute cholecystitis with obstruction Status: Acute Assessment and Plan: The patient was found to have acute gallstone pancreatitis with choledocholithiasis. MRCP at [place] on 06/16/22 still showed a 4 mm stone in the distal common bile duct. GI is following and he underwent an ERCP with sphincterotomy today. Multiple small stones and sludge were removed. To prevent future episodes of pancreatitis and complications of the gallstones, we would recommend proceeding with a laparoscopic cholecystectomy, possible open, by Dr. Garrison under general anesthesia. His pancreatitis seems to be improving and his lipase is down to 500. We will repeat labs tomorrow and plan on proceeding with surgery if they remain stable. Will repeat coags and keep his Lovenox on hold. Okay to have liquids tonight and will make NPO after midnight. I called his brother/POA, Jordan, and discussed the details of surgery and our plan with him. He understands and is agreeable. (2) Acute gallstone pancreatitis: Code(s): K85.10 - Biliary acute pancreatitis without necrosis or infection Status: Acute Assessment and Plan: Lipase trending down. Okay to start clear liquids for tonight, but will keep NPO after midnight for possible surgery tomorrow. See plan above. (3) Transaminitis: Code(s): R74.01 - Elevation of levels of liver transaminase levels Status: Acute Assessment and Plan: LFTs trending down. Likely related to choledocholithiasis. S/p ERCP today. Continue to trend labs. (4) History of deep venous thrombosis (DVT) of distal vein of left lower extremity: Code(s): Z86.718 - Personal history of other venous thrombosis and embolism Status: Acute Assessment and Plan: On warfarin for anticoagulation. Currently on hold. 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 Switched to therapeutic-dosed Lovenox, which is currently on hold. Continue to hold Lovenox for surgery tomorrow. (6) Seizure disorder: Code(s): G40.909 - Epilepsy, unspecified, not intractable, without status epilepticus Status: Acute (7) Intellectual disability: Code(s): F79 - Unspecified intellectual disabilities Status: Acute Plan I have discussed the patient's case and plan of care with Dr. Garrison. History of Present Illness Consult details Consult date: 06/19/22 Reason for consult: gallstones Requesting physician: Ernesto Bermudez MD Narrative: This is a 66-year-old man with a history of seizures, intellectual disability, and left lower extremity DVT on warfarin therapy, who presented to [facility] on 06/09/2022. His history is primarily obtained from review of his electronic and paper record. While he was at work, he was noted to have seizure activity and complained of burning epigastric abdominal pain and substernal pain. He had 1 episode of vomiting. Following this event, the patient was lethargic and confused, therefore he was taken to [facility] for further evaluation. He was admitted for transaminitis, acute cholecystitis/choledocholithiasis, and elevated troponin. At the time of admission, ALT 196, AST 12/08/2028, total bilirubin 2.2, INR 1.6, WBC 6.7, and troponin was 0.054. Per review of his record the troponin elevation was flattened considered to be noncardiac in origin. Hepatitis panel showed a positive hepatitis a IgM result. He was initially treated for the cholecystitis. They eventually proceed with an MRCP, which demonstrated a possible small stone in the common bile duct. He was then transferred to [facility] on 06/16/2022 for evaluation for an ERCP. Labs after arrival to [place] showed WB
[2022-06-19] MEDS: PHYTONADIONE 5 MG TABLET 10 MG PO (17:36)
[2022-06-20] VITALS (19 sets, daily range): BP systolic 117–161; BP diastolic 44–80; PULSE 65–104; RESP 18–24; TEMP 35.9–36.3; O2SAT 96–100
[2022-06-20 06:12] LABS: Basophils Absolute Auto 0.1 K/mm3 (0.0-0.1); Basophils Percent Auto 0.7 % (0.2-1.2); Eosinophils Absolute Auto 0.5 K/mm3 (0-0.3); Eosinophils Percent Auto 6.6 % (0-4.4); Hematocrit 37.6 % (42.0-52.0); Immature Granulocyte Absolute 0.05 K/mm3 (0.00-0.031); Immature Granulocyte Percent A 0.7 % (0-0.5); Lymphocytes Absolute Auto 1.33 K/mm3 (0.9-3.2); Lymphocytes Percent Auto 19.4 % (18.3-44.2); Mean Corpuscular HGB Conc 31.9 g/dl (32-36); Mean Corpuscular Hemoglobin 28.6 pg (26-34); Mean Corpuscular Volume 89.7 fl (80-100); Monocytes Absolute Auto 0.4 K/mm3 (0.1-0.6); Neutrophils Absolute Auto 4.6 K/mm3 (1.3-6.7); Neutrophils Percent Auto 66.6 % (45.5-73.1); Platelet Count Result 316 k/mm3 (150-375); Red Blood Count 4.19 M/mm3 (4.6-6.20); Red Cell Distribution Width 15.4 % (11.5-14.5); White Blood Count 6.9 K/mm3 (4.5-10.0)
[2022-06-20 06:24] LABS: INR 1.2; Prothrombin Time 14.9 Seconds (11.1-14.7)
[2022-06-20 06:25] LABS: Partial Thromboplastin Time 36.2 SECONDS (22.3-36.8)
[2022-06-20 06:30] LABS: Alanine Aminotransferase 153 U/L (6-50); Albumin Level 3.1 g/dL (3.5-5.1); Alkaline Phosphatase 193 U/L (38-126); Anion Gap 8 mmol/L (8-16); Aspartate Amino Transferase 99 U/L (17-59); Blood Urea Nitrogen 8 mg/dL (9-20); Calcium 8.2 mg/dL (8.4-10.2); Carbon Dioxide 26 mmol/L (22-30); Chloride 102 mmol/L (98-107); Estimated CRCL calculation 124 ml/min; Estimated Glomerular Filt Rate > 60; Glucose 106 mg/dL (65-110); Lipase 184 U/L (23-300); Potassium 3.5 mmol/L (3.4-5.0); Sodium 136 mmol/L (137-145)
--- NOTE | 2022-06-20 08:54 | WPDANESPN ---
Anes - Prog Note Post-Op Date/Time: 06/20/22 08:54 Vital Signs: Last Vital Signs Temp 36.2 C L 06/20/22 04:24 Pulse 73 06/20/22 04:24 Resp 18 06/20/22 04:24 BP 119/49 L 06/20/22 04:24 Pulse Ox 99 06/20/22 04:24 O2 Del Method Room Air 06/19/22 20:00 O2 Flow Rate 8 06/19/22 14:10 Pain Score (VAS): 0 I/O: Intake & Output 06/19/22 06/20/22 06/20/22 23:59 07:59 15:59 Intake Total 1340 340 Output Total 300 800 Balance 1040 -460 Laboratory Tests 06/20/22 05:39 06/20/22 05:39 06/19/22 06/19/22 06/20/22 10:13 10:13 05:39 WBC 8.5 6.9 RBC 4.33 L 4.19 L Hgb 12.3 L 12.0 L Hct 38.6 L 37.6 L MCV 89.1 89.7 MCH 28.4 28.6 MCHC 31.9 L 31.9 L RDW 15.6 H 15.4 H Plt Count 318 316 MPV 8.8 9.0 Immature Gran % (Auto) 0.5 0.7 H Neut % (Auto) 59.7 66.6 Lymph % (Auto) 28.5 19.4 [place] % (Auto) 4.7 6.0 Eos % (Auto) 5.9 H 6.6 H Baso % (Auto) 0.7 0.7 Lymph # (Auto) 2.41 1.33 [place] # (Auto) 0.4 0.4 Eos # (Auto) 0.5 H 0.5 H Baso # (Auto) 0.1 0.1 Abs Immat Gran (auto) 0.04 H 0.05 H Absolute Neuts (auto) 5.1 4.6 Absolute Nucleated RBC 0.0 0.0 Nucleated RBC % 0.0 0.0 PT INR APTT Sodium 132 L Potassium 3.3 L Chloride 101 Carbon Dioxide 25 Anion Gap 6 L BUN 10 Creatinine 0.60 L Estim Creat Clear Calc 143 Estimated GFR > 60 Glucose 94 Calcium 8.5 Magnesium 2.1 Total Bilirubin 2.3 H AST 54 ALT 162 H Alkaline Phosphatase 211 H Total Protein 7.0 Albumin 3.2 L Lipase Blood Type Antibody Screen 06/20/22 06/20/22 06/20/22 05:39 05:39 07:26 WBC RBC Hgb Hct MCV MCH MCHC RDW Plt Count MPV Immature Gran % (Auto) Neut % (Auto) Lymph % (Auto) [place] % (Auto) Eos % (Auto) Baso % (Auto) Lymph # (Auto) [place] # (Auto) Eos # (Auto) Baso # (Auto) Abs Immat Gran (auto) Absolute Neuts (auto) Absolute Nucleated RBC Nucleated RBC % PT 14.9 H D INR 1.2 APTT 36.2 Sodium 136 L Potassium 3.5 Chloride 102 Carbon Dioxide 26 Anion Gap 8 BUN 8 L Creatinine 0.70 Estim Creat Clear Calc 124 Estimated GFR > 60 Glucose 106 Calcium 8.2 L Magnesium Total Bilirubin 2.0 H AST 99 H ALT 153 H Alkaline Phosphatase 193 H Total Protein 7.0 Albumin 3.1 L Lipase 184 Blood Type A Positive Antibody Screen Negative Patient Feedback: Patient satisfied with anesthetic care.
[2022-06-20] MEDS: PANTOPRAZOLE SODIUM IV 40 MG VIAL IV PUSH (09:29)
[2022-06-20] MEDS: DOCUSATE SODIUM 100 MG CAPSULE PO (09:29)
[2022-06-20] MEDS: PHENYTOIN SODIUM 100 MG EXTENDED RELEASE CAP PO ×3 (09:29→19:09)
[2022-06-20] MEDS: LACTATED RINGERS 1,000 ML 75 ML IV CONT (11:25)
--- NOTE | 2022-06-20 13:04 | PM.IMPN ---
Progress Note: A&P Assessment and Plan (1) Acute gallstone pancreatitis: Code(s): K85.10 - Biliary acute pancreatitis without necrosis or infection Status: Acute (2) Choledocholithiasis with acute cholecystitis with obstruction: Code(s): K80.43 - Calculus of bile duct with acute cholecystitis with obstruction Status: Acute (3) Abnormal finding of biliary tract: Code(s): R19.8 - Other specified symptoms and signs involving the digestive system and abdomen Status: Acute (4) History of Coumadin therapy: Code(s): Z92.29 - Personal history of other drug therapy Status: Acute (5) Abdominal pain: Code(s): R10.9 - Unspecified abdominal pain Status: Acute (6) Hepatitis A: Code(s): B15.9 - Hepatitis A without hepatic coma Status: Acute (7) Transaminitis: Code(s): R74.01 - Elevation of levels of liver transaminase levels Status: Acute (8) Intellectual disability: Code(s): F79 - Unspecified intellectual disabilities Status: Acute (9) Seizure disorder: Code(s): G40.909 - Epilepsy, unspecified, not intractable, without status epilepticus Status: Acute (10) History of deep venous thrombosis (DVT) of distal vein of left lower extremity: Code(s): Z86.718 - Personal history of other venous thrombosis and embolism Status: Acute Plan 66-year-old male transferred from [facility] for ongoing treatment of suspected choledocholithiasis/cholecystitis. Outside facility requesting ERCP. Admit to med surge Diet NPO except for meds HIDA scan MRCP Zofran Tylenol, Percocet, morphine Pantoprazole b.i.d. Zosyn t.i.d. LR 100 cc/hour Docusate b.i.d. Blood cultures CBC Lipase CMP Direct bilirubin Hepatitis A PT INR Alk-phos BNP Magnesium Consult GI Activity up with assistance 06/17/22 pt w initial PE findings consistent w Acute Pancreatitis confirmed on labs his enzymes are again down trending and today he is w benign abd exam. I strongly suspect he has passed another stone. Unclear if he has cholecystitis or just choledocholithiasis w pancreatic injury. His WBC remains elevated. GI following, defer surgical consent to GI if they believe pt should be evaluated for lap medina cont current care serial labs pain medications PRN cont home meds LMWH substitiued for Warfarin until dc planning initiated IVFs abx GI recs appreciated 06/18/22 bilious vomiting approx 200cc per RN this am (not associated w medication administration) lipase and liver enzymes normalizing cont supportive care cont abx Zosyn IVFs run rate decreased to LR 75cchr cont NPO ERCP tomorrow 06/19/22 doing well pending ERCP cont abx cont IVFs cont supportive care 06/20/2022 ERCP with cholelithiasis/ choledocholithiasis 06/19/22 Surgery consulted for laparoscopic cholecystectomy IV fluids Zosyn Diet per surgeon postoperative Continue pain medication p.r.n. PT/OT when cleared by surgeon full dose anticoagulation for DVT history on hold, pending to be restarted when when cleared by surgeon GI requests no AC at least 06/24/22 Subjective Date/time seen: 06/20/22 13:04 No pain, nausea, vomiting, or feeling unwell reported with patient. He states that he is hungry wants to eat. Review of Systems Review of Systems: All systems reviewed & are unremarkable except as noted in HPI and below Exam Const: General: comfortable and uncomfortable Other: cooperative HENMT: General nose exam: Normal nares present Mouth: Yes moist mucous membranes Eyes: General: appearance normal, both eyes and all related structures EOM: EOMs intact bilaterally Neck: Neck: supple and no JVD Resp: Effort & Inspection: normal respiratory effort Other: symmetric chest rise Cardio: Rate: regular rate Rhythm: regular rhythm GI: Inspection: non-distended Other: soft, nontender, ND Urinary Catheter: Urin
--- NOTE | 2022-06-20 13:55 | WPDGIPROGNO ---
Progress Note: A&P Assessment and Plan (1) Choledocholithiasis with acute cholecystitis with obstruction: Code(s): K80.43 - Calculus of bile duct with acute cholecystitis with obstruction Status: Acute Assessment and Plan: treated successfully yesterday with ercp with removal stones and sludge liver enzymes trending down surgery in the case, will need cholecystectomy to prevent new pancreatitis symptomatically better (2) Acute gallstone pancreatitis: Code(s): K85.10 - Biliary acute pancreatitis without necrosis or infection Status: Acute Assessment and Plan: surgery on board (3) Anticoagulated by anticoagulation treatment: Code(s): Z79.01 - intermediate (current) use of anticoagulants Status: Acute Assessment and Plan: blood on thinner on hold for now (4) Transaminitis: Code(s): R74.01 - Elevation of levels of liver transaminase levels Status: Acute (5) Intellectual disability: Code(s): F79 - Unspecified intellectual disabilities Status: Acute Subjective Date/time seen: 06/20/22 13:55 Interval history: s/p ercp yesterday with removal of stones and sludge, pain is better today Review of Systems Review of Systems: All systems reviewed & are unremarkable except as noted in HPI and below Exam Const: General: comfortable, no acute distress and awake Nutritional Appearance: overweight Orientation/consciousness: oriented to person and oriented to place HENMT: Head: normocephalic and atraumatic Ears: hearing grossly normal bilaterally Mouth: Yes moist mucous membranes Eyes: General: appearance normal, both eyes and all related structures Neck: Neck: normal visual inspection and full ROM Resp: Effort & Inspection: no respiratory distress Auscultation: clear to auscultation bilaterally Cardio: Rate: regular rate Rhythm: regular rhythm Heart sounds: S1 normal heart sound present and S2 normal heart sound present GI: Inspection: non-distended and scar (large midline scar and RLQ wide scar) GI Palp: Yes Soft to palpation, No Tenderness to palpation present (GI), No Guarding due to palpation present (GI), No Hernia present and No Rebound tenderness present Percussion: Yes normal to percussion Auscultation: normal bowel sounds Rectal Exam: deferred Skin: General skin exam: normal color Rashes: no rashes Neuro: General: moves all extremities and no focal motor deficits Motor exam (neuro): 5/5 motor strength present throughout Extrem: General: normal to inspection and no edema Psych: Attitude: cooperative Insight: Limited insight present (Psych) Judgement: Limited judgement present (Psych) Objective Data Vital Signs Vital Signs: Vital Signs - 24 hr 06/19/22 14:00 06/19/22 14:10 06/19/22 14:20 Temperature 97.8 F Pulse Rate 75 79 82 Respiratory Rate 23 H 22 H 21 H Blood Pressure 131/67 132/66 148/75 H Pulse Oximetry 100 100 100 Oxygen Delivery Nasal Cannula Nasal Cannula Room Air Oxygen Flow Rate 8 8 06/19/22 14:30 06/19/22 14:40 06/19/22 14:50 Temperature 97.1 F L Pulse Rate 82 84 79 Respiratory Rate 22 H 25 H 23 H Blood Pressure 146/68 H 146/73 H 146/71 H Pulse Oximetry 100 98 99 Oxygen Delivery Room Air Room Air Room Air Oxygen Flow Rate 06/19/22 15:00 06/19/22 15:23 06/19/22 16:00 Temperature 97.2 F L 96.9 F L Pulse Rate 78 80 84 Respiratory Rate 26 H 18 Blood Pressure 154/68 H 146/60 H Pulse Oximetry 100 99 Oxygen Delivery Room Air Oxygen Flow Rate 06/19/22 19:33 06/19/22 20:00 06/19/22 20:00 Temperature 97.5 F L Pulse Rate 79 79 Respiratory Rate 18 Blood Pressure 133/53 L Pulse Oximetry 98 Oxygen Delivery Room Air Oxygen Flow Rate 06/20/22 00:00 06/20/22 04:00 06/20/22 04:24 Temperature 97.2 F L Pulse Rate 68 65 73 Respiratory Rate 18 Blood Pressure 119/49 L Pulse Oximetry 99 Oxygen Delivery Oxygen Flow Rate 06/20/22 08:00 06/20/22
--- NOTE | 2022-06-20 15:07 | PC.NURSE ---
pt. left the floor to preop. via bed at 15:07
[2022-06-20] MEDS: LACTATED RINGERS 1,000 ML 30 ML IV CONT (15:15)
--- NOTE | 2022-06-20 15:30 | WPDHPUPDATE1 ---
History and Physical Update Update Date/Time: 06/20/22 15:30 History and Physical has been reviewed, including an updated exam of the patient. There are NO changes in the patient's condition. Risks, benefits, and alternatives have been discussed and questions answered. Patient agrees to proceed with procedure.
--- NOTE | 2022-06-20 15:49 | P.PNAN_ITS ---
Anes - Eval Final PreProcedure Day of Procedure 06/20/22 15:49 Patient weight: obese Heart: regular rate and rhythm Lungs: clear to auscultation Airway: Mallampati scale class II Neurological: alert and oriented Last oral intake: >/= 8 hours ASA classification: III Emergent: no Anesthetic plan: proceed Anesthesia type and monitoring: general ETT and standard monitoring Results Review: All pre-operative results and documents have been reviewed as part of the pre- operative evaluation. Informed Consent: The patient's anesthetic plan and its attendant risks and benefits were discussed with the patient/family/POA. Questions were solicited and answers provided to the satisfaction of the patient/family/POA.
--- NOTE | 2022-06-20 17:38 | W.PM.PROC2 ---
Procedure Note - Detailed Date of Procedure 06/20/22 Pre-op Diagnosis Choledocholithiasis, cholelithiasis Post-op Diagnosis Same Procedure Performed Laparoscopic Cholecystectomy Surgeon Boyd Garrison, DO Anesthesia General and Local (0.5% bupivacaine) Indications This is a 66-year-old man who presented with upper abdominal pain and was found to have evidence of choledocholithiasis and acute pancreatitis. He was transferred from [facility] for ERCP. He underwent ERCP on 06/19/2022. Discussions were made with the patient and his brother about treatment options and decision was made to proceed with laparoscopic cholecystectomy, possible open. Findings Laparoscopic cholecystectomy was performed. The patient had a prior midline scar but he and his brother were unsure what procedure had been done. I attempted to enter in through the abdominal cavity in the supraumbilical region with an Optiview trocar but was unable to successfully visualize inside the abdominal cavity. I then placed a port in the right upper quadrant with optical entry and was able to see the right upper quadrant. There were a lot of omental adhesions and the midline and right lateral abdominal cavity. Some of these adhesions were taken down, but there still appeared to be extensive adhesions making adequate visualization throughout the entire abdominal cavity difficult. I was fortunately able to take down enough of the adhesions to place my ports and perform the laparoscopic cholecystectomy. The gallbladder appeared to have some pericholecystic adhesions but the cystic duct appeared normal in size. There were gallstones within the gallbladder. The gallbladder was removed and sent to the lab for pathology. Description of Procedure Procedure as well as risks, benefits, and alternatives were discussed with patient. Written consent was obtained and placed in chart prior to procedure. The patient was brought back to surgical suite. Patient was placed in supine position on operating table. Time-out was done to confirm patient and procedure. Patient was then intubated by the anesthesia department. Abdomen was prepped and draped in sterile fashion using chlorhexidine prep. 0.5% bupivacaine with epinephrine was infiltrated at each site of incision. A 5 millimeter incision was made near the umbilicus, and a 5 millimeter Optiview trocar was advanced through the abdominal layers under direct visualization. I was unable to enter into the abdominal cavity through this port site, therefore I made another separate incision in the right upper quadrant near the costal margin and a 5 mm trocar was advanced under direct visualization. Once inside the abdominal cavity, carbon dioxide was insufflated to create a pneumoperitoneum. The camera was inserted and the abdomen was inspected. Significant adhesions were identified throughout the abdominal cavity, but I was able to see the right lobe of the liver and gallbladder without any significant adhesions. I placed the subxiphoid port under direct visualization and then took down some of the adhesions with laparoscopic scissors in the upper abdomen midline region until I had enough visualization to place the remainder of my ports. The patient was placed in reverse Trendelenburg position and rotated slightly to the left. An 11 millimeter incision was made in the subxiphoid region, and an 11 millimeter trocar was inserted under direct visualization. Two 5 millimeter incisions were made in the right upper quadrant, and two 5 millimeter trocars were inserted under direct visualization. The gallbladder was identified and grasped at the fundus and retracted superiorly. It was then grasped at the infundibulum retracted laterally. Careful dissection around the neck of the gallbladder was performed using blunt dissection with a [place] grasper and hook electrocautery. The cystic duct was identified, and a window was created behind it. The
[2022-06-20] MEDS: fentaNYL CITRATE INJ (*CRX) 100 MCG/2 ML VIAL 25 MCG IV PUSH ×6 (17:48→18:21)
[2022-06-20] MEDS: LACTATED RINGERS 1,000 ML 100 ML IV CONT (18:55)
[2022-06-20] MEDS: HYDROcodone/acetaminophen (*CRX) 5-325 MG TABLET 2 TAB PO (20:11)
[2022-06-21] VITALS (11 sets, daily range): BP systolic 126–146; BP diastolic 52–62; PULSE 61–93; RESP 16–20; TEMP 35.7–36.6; O2SAT 96–100
[2022-06-21] MEDS: ENOXAPARIN 40 MG/0.4 ML SYRINGE SUB-Q (08:16)
[2022-06-21] MEDS: HYDROcodone/acetaminophen (*CRX) 5-325 MG TABLET 1 TAB PO ×2 (08:16→17:06)
[2022-06-21] MEDS: DOCUSATE SODIUM 100 MG CAPSULE PO ×2 (08:16→16:56)
[2022-06-21] MEDS: PANTOPRAZOLE 40 MG TABLET PO (08:16)
[2022-06-21] MEDS: PHENYTOIN SODIUM 100 MG EXTENDED RELEASE CAP PO ×3 (08:16→16:56)
--- NOTE | 2022-06-21 09:59 | WPDANESPN ---
Anes - Prog Note Post-Op Date/Time: 06/21/22 09:59 Cardiovascular status: normal Respiratory status: normal Airway patency: baseline Mental status: baseline Post-Op hydration status: normal Vital Signs: Last Vital Signs Temp 35.7 C L 06/21/22 04:39 Pulse 77 06/21/22 04:39 Resp 20 06/21/22 04:39 BP 135/52 L 06/21/22 04:39 Pulse Ox 98 06/21/22 04:39 O2 Del Method Room Air 06/20/22 20:00 O2 Flow Rate 8 06/20/22 17:55 Pain Score (VAS): 3 I/O: Intake & Output 06/20/22 06/21/22 06/21/22 23:59 07:59 15:59 Intake Total 400 190 480 Output Total 1325 1000 200 Balance -925 -810 280 Laboratory Tests 06/20/22 05:39 06/20/22 05:39 Post-procedural complaints: none Patient Feedback: Patient satisfied with anesthetic care.
--- NOTE | 2022-06-21 12:07 | PM.PNGS ---
Progress Note: A&P Assessment and Plan (1) Acute gallstone pancreatitis: Code(s): K85.10 - Biliary acute pancreatitis without necrosis or infection Status: Acute Assessment and Plan: Doing well. Surgically stable. OK to start Warfarin this evening, but wait to restart therapeutic lovenox until tomorrow. (2) Choledocholithiasis with acute cholecystitis with obstruction: Code(s): K80.43 - Calculus of bile duct with acute cholecystitis with obstruction Status: Acute Subjective Subjective Date/Time Seen: 06/21/22 12:07 Interval history: Pain controlled. No complaints. Exam GI: Inspection: non-distended, incision (intact with glue) and obesity GI Palp: Yes Soft to palpation and Yes Tenderness to palpation present (GI) (incisional) Objective Data Vital Signs Vital Signs: Vital Signs - 24 hr 06/20/22 14:00 06/20/22 16:00 06/20/22 17:40 Temperature 36.2 C L 36.1 C L Pulse Rate 75 81 104 H Respiratory Rate 20 20 Blood Pressure 132/54 L 144/80 H Pulse Oximetry 98 100 Oxygen Delivery Simple Face Mask Oxygen Flow Rate 8 06/20/22 17:55 06/20/22 18:07 06/20/22 18:10 Temperature Pulse Rate 92 89 Respiratory Rate 20 24 H Blood Pressure 160/59 H 156/59 H Pulse Oximetry 100 99 97 Oxygen Delivery Simple Face Mask Room Air Room Air Oxygen Flow Rate 8 06/20/22 18:26 06/20/22 18:40 06/20/22 18:53 Temperature Pulse Rate 80 80 94 Respiratory Rate 22 H 18 22 H Blood Pressure 160/55 H 149/69 H 155/64 H Pulse Oximetry 96 97 96 Oxygen Delivery Room Air Room Air Room Air Oxygen Flow Rate 06/20/22 19:07 06/20/22 19:39 06/20/22 20:39 Temperature 36.3 C L 35.9 C L 35.9 C L Pulse Rate 89 65 68 Respiratory Rate 18 20 18 Blood Pressure 161/65 H 140/44 L 147/50 H Pulse Oximetry 98 98 99 Oxygen Delivery Oxygen Flow Rate 06/20/22 20:50 06/20/22 20:00 06/20/22 23:47 Temperature 35.9 C L 36.0 C L Pulse Rate 68 69 Respiratory Rate 18 18 Blood Pressure 147/50 H 117/49 L Pulse Oximetry 99 97 Oxygen Delivery Room Air Oxygen Flow Rate 06/21/22 00:00 06/21/22 04:00 06/21/22 04:39 Temperature 35.7 C L Pulse Rate 61 61 77 Respiratory Rate 20 Blood Pressure 135/52 L Pulse Oximetry 98 Oxygen Delivery Oxygen Flow Rate 06/21/22 10:00 Temperature 36.4 C L Pulse Rate 81 Respiratory Rate 16 Blood Pressure 146/62 H Pulse Oximetry 100 Oxygen Delivery Oxygen Flow Rate Intake/Output Intake/Output: Intake & Output 06/18/22 06/19/22 06/20/22 06/21/22 23:59 23:59 23:59 23:59 Intake Total 3500 2490 1790 670 Output Total 2659 137 8114 1200 Balance 6945 1889 -935 -530 Meds/Results Medications: Active Medications Generic Name Dose Route Start Last Admin Trade Name Freq PRN Reason Stop Dose Admin Acetaminophen 500 mg 06/20/22 18:54 Acetaminophen 500 Mg Tablet PO Q6H PRN Mild Pain (1-3) or Fever Hydrocodone Bitart/Acetaminophen 1 tab 06/20/22 18:54 06/21/22 08:16 Hydrocodone/Acetaminophen (*Crx) 5-325 Mg Tablet PO 1 tab Q4H PRN Administration Pain Rated 4-6 Hydrocodone Bitart/Acetaminophen 2 tab 06/20/22 18:54 06/20/22 20:11 Hydrocodone/Acetaminophen (*Crx) 5-325 Mg Tablet PO 2 tab Q4H PRN Administration Pain Rated 7-10 Al Hydrox/Mg Hydrox/Simethicone 30 ml 06/16/22 14:49 Mag Hydrox/Al Hydrox/Simeth 30 Ml Udc PO QID PRN Dyspepsia Docusate Sodium 100 mg 06/16/22 17:00 06/21/22 08:16 Docusate Sodium 100 Mg Capsule PO 100 mg BID RUMA Administration Enoxaparin Sodium 115 mg 06/17/22 06:00 06/19/22 05:00 Enoxaparin 120 Mg/0.8 Ml Syringe SUB-Q 115 mg Q12H RUMA Administration Enoxaparin Sodium 40 mg 06/21/22 09:00 06/21/22 08:16 Enoxaparin 40 Mg/0.4 Ml Syringe SUB-Q 40 mg DAILY RUMA Administration Magnesium Hydroxide 30 ml 06/16/22 14:49 Magnesium Hydroxide Susp 30 Ml Udc PO DAILY PRN Constipation Metopr
--- NOTE | 2022-06-21 16:17 | WPDGIPROGNO ---
Progress Note: A&P Assessment and Plan (1) Choledocholithiasis with acute cholecystitis with obstruction: Code(s): K80.43 - Calculus of bile duct with acute cholecystitis with obstruction Status: Acute Assessment and Plan: s/p ercp with removal stones and sludge and yesterday lap [place] doing well and his liver enzymes have been trending down tolerating diet symptomatically better (2) Acute gallstone pancreatitis: Code(s): K85.10 - Biliary acute pancreatitis without necrosis or infection Status: Acute Assessment and Plan: lipase normal he is comfortable and eating (3) Anticoagulated by anticoagulation treatment: 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 Status: Acute Assessment and Plan: resume coumadin soon (4) Transaminitis: Code(s): R74.01 - Elevation of levels of liver transaminase levels Status: Acute Assessment and Plan: check cmp tomorrow (5) Intellectual disability: Code(s): F79 - Unspecified intellectual disabilities Status: Acute Subjective Date/time seen: 06/21/22 16:17 Interval history: s/p ercp 06/19 and yesterday lap [place], he is feeling better and tolerating diet Review of Systems Review of Systems: All systems reviewed & are unremarkable except as noted in HPI and below Exam Const: General: comfortable and no acute distress HENMT: General nose exam: Normal nares present Eyes: General: appearance normal, both eyes and all related structures Neck: Neck: supple Resp: Auscultation: clear to auscultation bilaterally Cardio: Rate: regular rate GI: Inspection: non-distended, incision (intact with glue) and obesity GI Palp: Yes Soft to palpation and Yes Tenderness to palpation present (GI) (incisional) Auscultation: normal bowel sounds Skin: General skin exam: normal color Neuro: Speech: normal speech Extrem: General: normal to inspection Psych: Affect: normal affect Objective Data Vital Signs Vital Signs: Vital Signs - 24 hr 06/20/22 17:40 06/20/22 17:55 06/20/22 18:07 Temperature 97.0 F L Pulse Rate 104 H 92 Respiratory Rate 20 20 Blood Pressure 144/80 H 160/59 H Pulse Oximetry 100 100 99 Oxygen Delivery Simple Face Mask Simple Face Mask Room Air Oxygen Flow Rate 8 8 06/20/22 18:10 06/20/22 18:26 06/20/22 18:40 Temperature Pulse Rate 89 80 80 Respiratory Rate 24 H 22 H 18 Blood Pressure 156/59 H 160/55 H 149/69 H Pulse Oximetry 97 96 97 Oxygen Delivery Room Air Room Air Room Air Oxygen Flow Rate 06/20/22 18:53 06/20/22 19:07 06/20/22 19:39 Temperature 97.3 F L 96.7 F L Pulse Rate 94 89 65 Respiratory Rate 22 H 18 20 Blood Pressure 155/64 H 161/65 H 140/44 L Pulse Oximetry 96 98 98 Oxygen Delivery Room Air Oxygen Flow Rate 06/20/22 20:39 06/20/22 20:50 06/20/22 20:00 Temperature 96.6 F L 96.6 F L Pulse Rate 68 68 Respiratory Rate 18 18 Blood Pressure 147/50 H 147/50 H Pulse Oximetry 99 99 Oxygen Delivery Room Air Oxygen Flow Rate 06/20/22 23:47 06/21/22 00:00 06/21/22 04:00 Temperature 96.8 F L Pulse Rate 69 61 61 Respiratory Rate 18 Blood Pressure 117/49 L Pulse Oximetry 97 Oxygen Delivery Oxygen Flow Rate 06/21/22 04:39 06/21/22 10:00 06/21/22 08:00 Temperature 96.3 F L 97.5 F L Pulse Rate 77 81 82 Respiratory Rate 20 16 Blood Pressure 135/52 L 146/62 H Pulse Oximetry 98 100 Oxygen Delivery Oxygen Flow Rate 06/21/22 08:15 06/21/22 12:00 06/21/22 13:13 Temperature Pulse Rate 88 86 Respiratory Rate Blood Pressure Pulse Oximetry Oxygen Delivery Room Air Oxygen Flow Rate 06/21/22 14:00 Temperature 97.3 F L Pulse Rate 83 Respiratory Rate 18 Blood Pressure 142/53 H Pulse Oximetry 96 Oxygen Delivery Oxygen Flow Rate Intake/Output Intake/Output: Intake & Output 06/18/22 06/19/22 06/20/22 06/21/22 23:59 23:59 23:59 23:59 [place]
--- NOTE | 2022-06-21 17:24 | PM.IMPN ---
Progress Note: A&P Assessment and Plan (1) Acute gallstone pancreatitis: Code(s): K85.10 - Biliary acute pancreatitis without necrosis or infection Status: Acute (2) Choledocholithiasis with acute cholecystitis with obstruction: Code(s): K80.43 - Calculus of bile duct with acute cholecystitis with obstruction Status: Acute (3) Abnormal finding of biliary tract: Code(s): R19.8 - Other specified symptoms and signs involving the digestive system and abdomen Status: Acute (4) History of Coumadin therapy: Code(s): Z92.29 - Personal history of other drug therapy Status: Acute (5) Abdominal pain: Code(s): R10.9 - Unspecified abdominal pain Status: Acute (6) Hepatitis A: Code(s): B15.9 - Hepatitis A without hepatic coma Status: Acute (7) Transaminitis: Code(s): R74.01 - Elevation of levels of liver transaminase levels Status: Acute (8) Intellectual disability: Code(s): F79 - Unspecified intellectual disabilities Status: Acute (9) Seizure disorder: Code(s): G40.909 - Epilepsy, unspecified, not intractable, without status epilepticus Status: Acute (10) History of deep venous thrombosis (DVT) of distal vein of left lower extremity: Code(s): Z86.718 - Personal history of other venous thrombosis and embolism Status: Acute Plan 66yo male transferred from [facility] for ongoing treatment of suspected choledocholithiasis/cholecystitis. Outside facility requesting ERCP. Patient's pancreatitis resolved. Lipase yesterday was normal. His liver enzymes continue to improve. It was suspected that the pancreatitis was related to gallstones. GI was consulted. ERCP on 06/19 22 shows filling defect distal common bile duct with stone extraction. Patient tolerated the procedure well. Patient underwent laparoscopic cholecystectomy on 06/20/2022. He again tolerated this well. Will resume Coumadin per surgery recommendations. Will start therapy. Increase activity level as tolerated. Okay to stop telemetry. Daily INR Subjective Date/time seen: 06/21/22 17:24 Interval history: 66yo male with Intellectual disability, seizure disorder and history of DVT transferred from [facility]SH for transaminitis, acute cholecystitis/choledocholithiasis, elevated troponin. Assuming care. Chart reviewed. Patient is feeling well. Abdominal pain is well controlled. Tolerating oral intake. No chest pain. History is limited. Exam Narrative: AF 97.3 142/53 89 18 96% ra Gen - NARD Chest -Lungs clear anteriorly and in the flanks. Normal respiratory rate CV - RRR S1/S2 Abd - soft. Nondistended. Positive bowel sounds. Incisions are clean, dry and intact. Ext - No pedal edema Psych - Nml mood and affect. Garbled speech. Skin - Warm and dry Objective Data Vital Signs Vital Signs: Vital Signs - 24 hr 06/20/22 17:40 06/20/22 17:55 06/20/22 18:07 Temperature 97.0 F L Pulse Rate 104 H 92 Respiratory Rate 20 20 Blood Pressure 144/80 H 160/59 H Pulse Oximetry 100 100 99 Oxygen Delivery Simple Face Mask Simple Face Mask Room Air Oxygen Flow Rate 8 8 06/20/22 18:10 06/20/22 18:26 06/20/22 18:40 Temperature Pulse Rate 89 80 80 Respiratory Rate 24 H 22 H 18 Blood Pressure 156/59 H 160/55 H 149/69 H Pulse Oximetry 97 96 97 Oxygen Delivery Room Air Room Air Room Air Oxygen Flow Rate 06/20/22 18:53 06/20/22 19:07 06/20/22 19:39 Temperature 97.3 F L 96.7 F L Pulse Rate 94 89 65 Respiratory Rate 22 H 18 20 Blood Pressure 155/64 H 161/65 H 140/44 L Pulse Oximetry 96 98 98 Oxygen Delivery Room Air Oxygen Flow Rate 06/20/22 20:39 06/20/22 20:50 06/20/22 20:00 Temperature 96.6 F L 96.6 F L Pulse Rate 68 68 Respiratory Rate 18 18 Blood Pressure 147/50 H 147/50 H Pulse Oximetry 99 99 Oxygen Delivery Room Air Oxygen Flow Rate 06/20/22 23:47 06/21/22 00:00
[2022-06-21] MEDS: WARFARIN (*PBKC) 5 MG TABLET PO (18:26)
[2022-06-21] MEDS: MAG HYDROX/AL HYDROX/SIMETH 30 ML UDC PO (20:11)
[2022-06-22] VITALS (7 sets, daily range): BP systolic 120–151; BP diastolic 48–66; PULSE 79–107; RESP 16–18; TEMP 35.8–36.6; O2SAT 95–97
[2022-06-22 05:55] LABS: INR 1.2; Prothrombin Time 14.3 Seconds (11.1-14.7)
[2022-06-22 05:58] LABS: Alanine Aminotransferase 304 U/L (6-50); Albumin Level 3.4 g/dL (3.5-5.1); Alkaline Phosphatase 192 U/L (38-126); Anion Gap 4 mmol/L (8-16); Aspartate Amino Transferase 226 U/L (17-59); Bilirubin,Total 1.3 mg/dL (0.2-1.3); Blood Urea Nitrogen 8 mg/dL (9-20); Calcium 8.5 mg/dL (8.4-10.2); Carbon Dioxide 30 mmol/L (22-30); Chloride 102 mmol/L (98-107); Estimated CRCL calculation 124 ml/min; Estimated Glomerular Filt Rate > 60; Glucose 116 mg/dL (65-110); Potassium 3.4 mmol/L (3.4-5.0); Sodium 136 mmol/L (137-145)
--- NOTE | 2022-06-22 07:26 | PM.IMPN ---
Progress Note: A&P Assessment and Plan (1) Acute gallstone pancreatitis: Code(s): K85.10 - Biliary acute pancreatitis without necrosis or infection Status: Acute (2) Choledocholithiasis with acute cholecystitis with obstruction: Code(s): K80.43 - Calculus of bile duct with acute cholecystitis with obstruction Status: Acute (3) Abnormal finding of biliary tract: Code(s): R19.8 - Other specified symptoms and signs involving the digestive system and abdomen Status: Acute (4) History of Coumadin therapy: Code(s): Z92.29 - Personal history of other drug therapy Status: Acute (5) Abdominal pain: Code(s): R10.9 - Unspecified abdominal pain Status: Acute (6) Hepatitis A: Code(s): B15.9 - Hepatitis A without hepatic coma Status: Acute (7) Transaminitis: Code(s): R74.01 - Elevation of levels of liver transaminase levels Status: Acute (8) Intellectual disability: Code(s): F79 - Unspecified intellectual disabilities Status: Acute (9) Seizure disorder: Code(s): G40.909 - Epilepsy, unspecified, not intractable, without status epilepticus Status: Acute (10) History of deep venous thrombosis (DVT) of distal vein of left lower extremity: Code(s): Z86.718 - Personal history of other venous thrombosis and embolism Status: Acute Plan 66yo male transferred from [facility] for ongoing treatment of suspected choledocholithiasis/cholecystitis. Outside facility requesting ERCP. Patient's pancreatitis resolved. Lipase normalized. His liver enzymes continue to improve. Repeat HepA IgM negative. It was suspected that the pancreatitis was related to gallstones. MRCP was concerning for stone in the common bile duct. GI was consulted. ERCP on 06/19 22 shows filling defect distal common bile duct and he underwent stone extraction. Patient tolerated the procedure well. GenSurg consulted. Patient underwent laparoscopic cholecystectomy on 06/20/22. He tolerated this well. Coumadin resumed per surgery recommendations. Therapy started. RN states patietn not very motivated to be out of bed. This was encouraged. Liver enzymes higher today. Probably related to the recent surgery. No fevers or increasing pain. No CBC but will check tomorrow. Increase activity level as tolerated. Continue daily INR DVT Prophylaxis: Lovenox (Coumadin started) Code status: Full Diet: Low fat Subjective Date/time seen: 06/22/22 07:26 Interval history: 66yo male with Intellectual disability, seizure disorder and history of DVT transferred from OSH for transaminitis, acute cholecystitis/choledocholithiasis, elevated troponin. Patient had nausea with one bout of emesis last night. Patient states he feels fine today. Denies abd pain. No CP. No BM. History is limited. Exam Narrative: AF 97.9 123/56 85 16 96% ra Gen - NARD lying semi-recumbent in bed Chest -Lungs clear anteriorly and in the flanks. Normal respiratory rate CV - RRR S1/S2 Abd - soft. Nondistended. Minimal tenderness. +BS. Incisions are clean, dry and intact. Ext - trace pedal edema Psych - Nml mood and affect. halting speech Skin - Warm and dry Objective Data Vital Signs Vital Signs: Vital Signs - 24 hr 06/21/22 10:00 06/21/22 08:00 06/21/22 08:15 Temperature 97.5 F L Pulse Rate 81 82 Respiratory Rate 16 Blood Pressure 146/62 H Pulse Oximetry 100 Oxygen Delivery Room Air 06/21/22 12:00 06/21/22 13:13 06/21/22 14:00 Temperature 97.3 F L Pulse Rate 88 86 83 Respiratory Rate 18 Blood Pressure 142/53 H Pulse Oximetry 96 Oxygen Delivery 06/21/22 16:00 06/21/22 18:00 06/21/22 21:04 Temperature 97.0 F L 97.8 F Pulse Rate 89 93 80 Respiratory Rate 18 16 Blood Pressure 142/54 H 126/61 Pulse Oximetry 98 98 Oxygen Delivery 06/21/22 20:00 06/22/22 05:03 Temperature 97.9 F Pulse Rate 85 Respiratory Rat
[2022-06-22] MEDS: PHENYTOIN SODIUM 100 MG EXTENDED RELEASE CAP PO ×3 (08:16→16:04)
[2022-06-22] MEDS: PANTOPRAZOLE 40 MG TABLET PO (08:16)
[2022-06-22] MEDS: DOCUSATE SODIUM 100 MG CAPSULE PO ×2 (08:16→16:04)
[2022-06-22] MEDS: ENOXAPARIN 40 MG/0.4 ML SYRINGE SUB-Q (08:16)
--- NOTE | 2022-06-22 08:23 | PM.PNGS ---
Progress Note: A&P Assessment and Plan (1) Acute gallstone pancreatitis: Code(s): K85.10 - Biliary acute pancreatitis without necrosis or infection Status: Acute Assessment and Plan: Continue increasing activity as tolerated. Bilirubin down but AST/ALT slightly up, likely reactive. Resume anticoagulation (2) Choledocholithiasis with acute cholecystitis with obstruction: Code(s): K80.43 - Calculus of bile duct with acute cholecystitis with obstruction Status: Acute Subjective Subjective Date/Time Seen: 06/22/22 08:23 Interval history: Patient vomited once yesterday. No BM yet since surgery. Not moving much yet. Denies pain. Exam GI: Inspection: non-distended, incision (intact with glue) and obesity Objective Data Vital Signs Vital Signs: Vital Signs - 24 hr 06/21/22 10:00 06/21/22 12:00 06/21/22 13:13 Temperature 36.4 C L Pulse Rate 81 88 86 Respiratory Rate 16 Blood Pressure 146/62 H Pulse Oximetry 100 Oxygen Delivery 06/21/22 14:00 06/21/22 16:00 06/21/22 18:00 Temperature 36.3 C L 36.1 C L Pulse Rate 83 89 93 Respiratory Rate 18 18 Blood Pressure 142/53 H 142/54 H Pulse Oximetry 96 98 Oxygen Delivery 06/21/22 21:04 06/21/22 20:00 06/22/22 05:03 Temperature 36.6 C 36.6 C Pulse Rate 80 85 Respiratory Rate 16 16 Blood Pressure 126/61 123/56 L Pulse Oximetry 98 96 Oxygen Delivery Room Air Intake/Output Intake/Output: Intake & Output 06/19/22 06/20/22 06/21/22 06/22/22 23:59 23:59 23:59 23:59 Intake Total 2490 1790 1010 100 Output Total 601 1005 1975 250 Balance 1889 -935 -965 -150 Meds/Results Medications: Active Medications Generic Name Dose Route Start Last Admin Trade Name Freq PRN Reason Stop Dose Admin Acetaminophen 500 mg 06/20/22 18:54 Acetaminophen 500 Mg Tablet PO Q6H PRN Mild Pain (1-3) or Fever Hydrocodone Bitart/Acetaminophen 1 tab 06/20/22 18:54 06/21/22 17:06 Hydrocodone/Acetaminophen (*Crx) 5-325 Mg Tablet PO 1 tab Q4H PRN Administration Pain Rated 4-6 Hydrocodone Bitart/Acetaminophen 2 tab 06/20/22 18:54 06/20/22 20:11 Hydrocodone/Acetaminophen (*Crx) 5-325 Mg Tablet PO 2 tab Q4H PRN Administration Pain Rated 7-10 Al Hydrox/Mg Hydrox/Simethicone 30 ml 06/16/22 14:49 06/21/22 20:11 Mag Hydrox/Al Hydrox/Simeth 30 Ml Udc PO 30 ml QID PRN Administration Dyspepsia Docusate Sodium 100 mg 06/16/22 17:00 06/22/22 08:16 Docusate Sodium 100 Mg Capsule PO 100 mg BID RUMA Administration Enoxaparin Sodium 115 mg 06/17/22 06:00 06/19/22 05:00 Enoxaparin 120 Mg/0.8 Ml Syringe SUB-Q 115 mg Q12H RUMA Administration Enoxaparin Sodium 40 mg 06/21/22 09:00 06/22/22 08:16 Enoxaparin 40 Mg/0.4 Ml Syringe SUB-Q 40 mg DAILY RUMA Administration Magnesium Hydroxide 30 ml 06/16/22 14:49 Magnesium Hydroxide Susp 30 Ml Udc PO DAILY PRN Constipation Metoprolol Tartrate 2.5 mg 06/17/22 16:26 Metoprolol Tartrate Inj 5 Mg/5 Ml Vial IV PUSH Q6H PRN Heart Rate-High >110 sustained Morphine Sulfate 2 mg 06/20/22 18:54 Morphine Sulfate (*Crx) 2 Mg/Ml Inj IV PUSH Q2H PRN Pain Rated 4-6 Morphine Sulfate 4 mg 06/20/22 18:54 Morphine Sulfate (*Crx) 4 Mg/Ml Inj IV PUSH Q2H PRN Pain Rated 7-10 Naloxone HCl 0.1 mg 06/16/22 14:49 Naloxone Hcl 0.4 Mg/Ml Vial IV PUSH Q2M PRN Opiate Reversal Ondansetron HCl 4 mg 06/16/22 14:49 06/18/22 08:06 Ondansetron Inj 4 Mg/2 Ml Vial IV PUSH 4 mg Q6H PRN Administration Nausea And Vomiting Pantoprazole Sodium 40 mg 06/21/22 09:00 06/22/22 08:16 Pantoprazole 40 Mg Tablet PO 40 mg QAM RUMA Administration Phenytoin Sodium 100 mg 06/16/22 17:00 06/22/22 08:16 Phenytoin Sodium 100 Mg Extended Release Cap PO 100 mg TID RUMA Administration Warfarin Sodium 5 mg 06/21/22 17:00 06/21/22 18:26
--- NOTE | 2022-06-22 15:43 | WPDGIPROGNO ---
Progress Note: A&P Assessment and Plan (1) Choledocholithiasis with acute cholecystitis with obstruction: Code(s): K80.43 - Calculus of bile duct with acute cholecystitis with obstruction Status: Acute Assessment and Plan: s/p ercp with removal stones and sludge followed by [facility] doing well tolerating diet symptomatically better s/p antibiotics (2) Acute gallstone pancreatitis: Code(s): K85.10 - Biliary acute pancreatitis without necrosis or infection Status: Acute Assessment and Plan: lipase normal he is comfortable and eating (3) Anticoagulated by anticoagulation treatment: Code(s): Z79.01 - termite technician (current) use of anticoagulants Status: Acute Assessment and Plan: he is back on coumadin (4) Transaminitis: Code(s): R74.01 - Elevation of levels of liver transaminase levels Status: Acute Assessment and Plan: normal bili, transaminases still elevated (5) Intellectual disability: Code(s): F79 - Unspecified intellectual disabilities Status: Acute Subjective Date/time seen: 06/22/22 15:43 Interval history: doing well and recovering Review of Systems Review of Systems: All systems reviewed & are unremarkable except as noted in HPI and below Exam Const: General: comfortable and no acute distress HENMT: General nose exam: Normal nares present Eyes: General: appearance normal, both eyes and all related structures Neck: Neck: supple Resp: Auscultation: clear to auscultation bilaterally Cardio: Rate: regular rate GI: Inspection: non-distended, incision (intact with glue) and obesity GI Palp: Yes Soft to palpation and Yes Tenderness to palpation present (GI) (incisional) Auscultation: normal bowel sounds Skin: General skin exam: normal color Neuro: Speech: normal speech Extrem: General: normal to inspection Psych: Affect: normal affect Objective Data Vital Signs Vital Signs: Vital Signs - 24 hr 06/21/22 16:00 06/21/22 18:00 06/21/22 21:04 Temperature 97.0 F L 97.8 F Pulse Rate 89 93 80 Respiratory Rate 18 16 Blood Pressure 142/54 H 126/61 Pulse Oximetry 98 98 Oxygen Delivery 06/21/22 20:00 06/22/22 05:03 06/22/22 09:22 Temperature 97.9 F Pulse Rate 85 Respiratory Rate 16 Blood Pressure 123/56 L Pulse Oximetry 96 Oxygen Delivery Room Air Room Air 06/22/22 10:05 06/22/22 08:16 06/22/22 11:46 Temperature 97.1 F L Pulse Rate 82 Respiratory Rate 16 Blood Pressure 151/59 H Pulse Oximetry 96 Oxygen Delivery Room Air Room Air 06/22/22 13:45 06/22/22 13:50 06/22/22 13:55 Temperature 96.5 F L Pulse Rate 82 87 107 H Respiratory Rate 16 Blood Pressure 142/66 H 135/61 132/61 Pulse Oximetry 97 95 95 Oxygen Delivery Intake/Output Intake/Output: Intake & Output 06/19/22 06/20/22 06/21/22 06/22/22 23:59 23:59 23:59 23:59 Intake Total 2490 1790 1010 700 Output Total 601 9278 1975 250 Balance 4440 -935 -967 450 Meds/Results Medications: Active Medications Generic Name Dose Route Start Last Admin Trade Name Freq PRN Reason Stop Dose Admin Acetaminophen 500 mg 06/20/22 18:54 Acetaminophen 500 Mg Tablet PO Q6H PRN Mild Pain (1-3) or Fever Hydrocodone Bitart/Acetaminophen 1 tab 06/20/22 18:54 06/21/22 17:06 Hydrocodone/Acetaminophen (*Crx) 5-325 Mg Tablet PO 1 tab Q4H PRN Administration Pain Rated 4-6 Hydrocodone Bitart/Acetaminophen 2 tab 06/20/22 18:54 06/20/22 20:11 Hydrocodone/Acetaminophen (*Crx) 5-325 Mg Tablet PO 2 tab Q4H PRN Administration Pain Rated 7-10 Al Hydrox/Mg Hydrox/Simethicone 30 ml 06/16/22 14:49 06/21/22 20:11 Mag Hydrox/Al Hydrox/Simeth 30 Ml Udc PO 30 ml QID PRN Administration Dyspepsia Docusate Sodium 100 mg 06/16/22 17:00 06/22/22 08:16 Docusate Sodium 100 Mg Capsule PO 100 mg BID RUMA Administration Enoxaparin Sodium 115 mg 08
[2022-06-22] MEDS: WARFARIN (*PBKC) 2.5 MG TABLET PO (16:04)
--- NOTE | 2022-06-22 16:42 | PC.NURSE ---
On 06/22/22, the License pending nurse, Zander Estevez, provided care and completed [employer] documentation on this patient. I have reviewed the License pending nurse's documentation and agree with the findings.
[2022-06-23 03:43] VITALS: BP 132/57; PULSE 73; RESP 20; TEMP 36; O2SAT 97
[2022-06-23 05:56] LABS: Basophils Absolute Auto 0.1 K/mm3 (0.0-0.1); Basophils Percent Auto 0.8 % (0.2-1.2); Eosinophils Absolute Auto 0.5 K/mm3 (0-0.3); Eosinophils Percent Auto 4.4 % (0-4.4); Hematocrit 40.3 % (42.0-52.0); Hemoglobin 12.9 g/dL (14.0-18.0); Immature Granulocyte Absolute 0.11 K/mm3 (0.00-0.031); Lymphocytes Absolute Auto 2.33 K/mm3 (0.9-3.2); Lymphocytes Percent Auto 21.9 % (18.3-44.2); Mean Corpuscular Hemoglobin 28.7 pg (26-34); Mean Corpuscular Volume 89.6 fl (80-100); Monocytes Absolute Auto 0.5 K/mm3 (0.1-0.6); Monocytes Percent Auto 5.1 % (2.6-8.5); Neutrophils Absolute Auto 7.1 K/mm3 (1.3-6.7); Neutrophils Percent Auto 66.8 % (45.5-73.1); Platelet Count Result 452 k/mm3 (150-375); Red Cell Distribution Width 15.2 % (11.5-14.5); White Blood Count 10.7 K/mm3 (4.5-10.0)
[2022-06-23 06:03] LABS: INR 1.1; Prothrombin Time 13.8 Seconds (11.1-14.7)
[2022-06-23 06:11] LABS: Alanine Aminotransferase 346 U/L (6-50); Albumin Level 3.4 g/dL (3.5-5.1); Alkaline Phosphatase 180 U/L (38-126); Anion Gap 7 mmol/L (8-16); Aspartate Amino Transferase 225 U/L (17-59); Bilirubin,Total 1.3 mg/dL (0.2-1.3); Blood Urea Nitrogen 11 mg/dL (9-20); Carbon Dioxide 29 mmol/L (22-30); Chloride 100 mmol/L (98-107); Estimated CRCL calculation 110 ml/min; Estimated Glomerular Filt Rate > 60; Glucose 123 mg/dL (65-110); Potassium 3.9 mmol/L (3.4-5.0); Sodium 136 mmol/L (137-145)
--- NOTE | 2022-06-23 08:09 | PM.PNGS ---
Progress Note: A&P Assessment and Plan (1) Acute gallstone pancreatitis: Code(s): K85.10 - Biliary acute pancreatitis without necrosis or infection Status: Acute Assessment and Plan: Doing well. OK to discharge from surgical standpoint. (2) Choledocholithiasis with acute cholecystitis with obstruction: Code(s): K80.43 - Calculus of bile duct with acute cholecystitis with obstruction Status: Acute Subjective Subjective Date/Time Seen: 06/23/22 08:09 Interval history: Tolerating diet. No complaints today. No abdominal pain. Exam GI: Inspection: non-distended and obesity GI Palp: Yes Soft to palpation, No Tenderness to palpation present (GI) and No Guarding due to palpation present (GI) Objective Data Vital Signs Vital Signs: Vital Signs - 24 hr 06/22/22 09:22 06/22/22 10:05 06/22/22 08:16 Temperature 36.2 C L Pulse Rate 82 Respiratory Rate 16 Blood Pressure 151/59 H Pulse Oximetry 96 Oxygen Delivery Room Air Room Air 06/22/22 11:46 06/22/22 13:45 06/22/22 13:50 Temperature 35.8 C L Pulse Rate 82 87 Respiratory Rate 16 Blood Pressure 142/66 H 135/61 Pulse Oximetry 97 95 Oxygen Delivery Room Air 06/22/22 13:55 06/22/22 18:20 06/22/22 20:53 Temperature 36.3 C L 36.1 C L Pulse Rate 107 H 87 79 Respiratory Rate 16 18 Blood Pressure 132/61 150/66 H 120/48 L Pulse Oximetry 95 96 96 Oxygen Delivery 06/22/22 20:00 06/23/22 03:43 Temperature 36.0 C L Pulse Rate 73 Respiratory Rate 20 Blood Pressure 132/57 L Pulse Oximetry 97 Oxygen Delivery Room Air Intake/Output Intake/Output: Intake & Output 06/20/22 06/21/22 06/22/22 06/23/22 23:59 23:59 23:59 23:59 Intake Total 1790 1010 1070 190 Output Total 6865 6754 425 Balance -935 -965 645 190 Meds/Results Medications: Active Medications Generic Name Dose Route Start Last Admin Trade Name Freq PRN Reason Stop Dose Admin Acetaminophen 500 mg 06/20/22 18:54 Acetaminophen 500 Mg Tablet PO Q6H PRN Mild Pain (1-3) or Fever Hydrocodone Bitart/Acetaminophen 1 tab 06/20/22 18:54 06/21/22 17:06 Hydrocodone/Acetaminophen (*Crx) 5-325 Mg Tablet PO 1 tab Q4H PRN Administration Pain Rated 4-6 Hydrocodone Bitart/Acetaminophen 2 tab 06/20/22 18:54 06/20/22 20:11 Hydrocodone/Acetaminophen (*Crx) 5-325 Mg Tablet PO 2 tab Q4H PRN Administration Pain Rated 7-10 Al Hydrox/Mg Hydrox/Simethicone 30 ml 06/16/22 14:49 06/21/22 20:11 Mag Hydrox/Al Hydrox/Simeth 30 Ml Udc PO 30 ml QID PRN Administration Dyspepsia Docusate Sodium 100 mg 06/16/22 17:00 06/22/22 16:04 Docusate Sodium 100 Mg Capsule PO 100 mg BID RUMA Administration Enoxaparin Sodium 115 mg 06/17/22 06:00 06/19/22 05:00 Enoxaparin 120 Mg/0.8 Ml Syringe SUB-Q 115 mg Q12H RUMA Administration Enoxaparin Sodium 40 mg 06/21/22 09:00 06/22/22 08:16 Enoxaparin 40 Mg/0.4 Ml Syringe SUB-Q 40 mg DAILY RUMA Administration Magnesium Hydroxide 30 ml 06/16/22 14:49 Magnesium Hydroxide Susp 30 Ml Udc PO DAILY PRN Constipation Metoprolol Tartrate 2.5 mg 06/17/22 16:26 Metoprolol Tartrate Inj 5 Mg/5 Ml Vial IV PUSH Q6H PRN Heart Rate-High >110 sustained Morphine Sulfate 2 mg 06/20/22 18:54 Morphine Sulfate (*Crx) 2 Mg/Ml Inj IV PUSH Q2H PRN Pain Rated 4-6 Morphine Sulfate 4 mg 06/20/22 18:54 Morphine Sulfate (*Crx) 4 Mg/Ml Inj IV PUSH Q2H PRN Pain Rated 7-10 Naloxone HCl 0.1 mg 06/16/22 14:49 Naloxone Hcl 0.4 Mg/Ml Vial IV PUSH Q2M PRN Opiate Reversal Ondansetron HCl 4 mg 06/16/22 14:49 06/18/22 08:06 Ondansetron Inj 4 Mg/2 Ml Vial IV PUSH 4 mg Q6H PRN Administration Nausea And Vomiting Pantoprazole Sodium 40 mg 06/21/22 09:00 06/22/22 08:16 Pantoprazole 40 Mg Tablet PO 40 mg QAM RUMA Administration Phenytoin Sodium 100 mg 06/16/22 17
[2022-06-23] MEDS: PHENYTOIN SODIUM 100 MG EXTENDED RELEASE CAP PO ×2 (09:28→13:18)
[2022-06-23] MEDS: PANTOPRAZOLE 40 MG TABLET PO (09:28)
[2022-06-23] MEDS: ENOXAPARIN 40 MG/0.4 ML SYRINGE SUB-Q (09:29)
[2022-06-23 10:00] VITALS: BP 128/75; PULSE 94; RESP 16; TEMP 36.1; O2SAT 98
--- NOTE | 2022-06-23 13:48 | PCOTNOTE ---
Attempted to see patient this pm, however patient declined reported waiting for discharge. Per RN, brother coming to pick him up.
[2022-06-23 14:00] VITALS: BP 121/53; PULSE 81; RESP 16; TEMP 36.2; O2SAT 97
--- NOTE | 2022-06-23 14:14 | PCNWS ---
Weekly nutritional screen. Patient is tolerating current low fat diet with adequate intake. No weight loss reported. No nutritional needs at this time. Feeds self.
--- NOTE | 2022-06-23 15:20 | PM.DS ---
DS: Admitting Diagnosis Discharge Date 06/23/22 Admitting Diagnosis Suspected choledocholithiasis/cholecystitis DS: Discharge Diagnosis Discharge Diagnosis (1) Acute gallstone pancreatitis: Code(s): K85.10 - Biliary acute pancreatitis without necrosis or infection Status: Acute (2) Choledocholithiasis with acute cholecystitis with obstruction: Code(s): K80.43 - Calculus of bile duct with acute cholecystitis with obstruction Status: Acute (3) Abnormal finding of biliary tract: Code(s): R19.8 - Other specified symptoms and signs involving the digestive system and abdomen Status: Acute (4) History of Coumadin therapy: Code(s): Z92.29 - Personal history of other drug therapy Status: Acute (5) Abdominal pain: Code(s): R10.9 - Unspecified abdominal pain Status: Acute (6) Hepatitis A: Code(s): B15.9 - Hepatitis A without hepatic coma Status: Acute (7) Transaminitis: Code(s): R74.01 - Elevation of levels of liver transaminase levels Status: Acute (8) Intellectual disability: Code(s): F79 - Unspecified intellectual disabilities Status: Acute (9) Seizure disorder: Code(s): G40.909 - Epilepsy, unspecified, not intractable, without status epilepticus Status: Acute (10) History of deep venous thrombosis (DVT) of distal vein of left lower extremity: Code(s): Z86.718 - Personal history of other venous thrombosis and embolism Status: Acute DS: Summary Hospital Course Reason for hospitalization: 66yo male with? Intellectual disability, seizure disorder and history of DVT transferred from OSH for transaminitis, acute cholecystitis/choledocholithiasis, elevated troponin. Please see H&P for details Hospital Course: 66yo male transferred from [facility] for ongoing treatment of suspected choledocholithiasis/cholecystitis. Outside facility requesting ERCP. Patient's pancreatitis resolved. Lipase normalized. His liver enzymes continue to improve. Repeat HepA IgM negative. It was suspected that the pancreatitis was related to gallstones. MRCP was concerning for stone in the common bile duct. GI was consulted. ERCP on 06/19/22 shows filling defect distal common bile duct and he underwent stone extraction. Patient tolerated the procedure well. GenSurg consulted. Patient underwent laparoscopic cholecystectomy on 06/20/22. He tolerated this well. Coumadin resumed per surgery recommendations. Therapy started. Liver enzymes higher after surgery but no fevers or increasing pain. His diet was advanced and he toelrated this well. He wa able to be discharged home on 06/23/22 Status at Discharge Cognitive/behavioral status at discharge: Stable Time Spent with Patient Time attestation: Total time spent providing and/or coordinating discharge services: 35 minutes Time spent: Greater than 30 minutes Exam Narrative: AF 97.1 121/53 81 16 97% ra Gen - NARD sitting up in the chair Chest -Lungs clear bilaterally, nml RR CV - RRR S1/S2 Abd - soft. Nondistended. Minimal tenderness. +BS. Incisions are clean, dry and intact. Ext - no pedal edema Psych - Nml mood and affect. Skin - Warm and dry DS: Data Data Completed and Pending Completed studies during hospitalization: Pending at discharge 06/20/22 17:20 Surgical [PTH] Routine Labs on day of discharge: Labs from last 24 hours 06/23/22 06/23/22 06/23/22 05:24 05:24 05:24 WBC 10.7 H RBC 4.50 L Hgb 12.9 L Hct 40.3 L MCV 89.6 MCH 28.7 MCHC 32.0 RDW 15.2 H Plt Count 452 H MPV 9.0 Immature Gran % (Auto) 1.0 H Neut % (Auto) 66.8 Lymph % (Auto) 21.9 Douglas % (Auto) 5.1 Eos % (Auto) 4.4 Baso % (Auto) 0.8 Lymph # (Auto) 2.33 Douglas # (Auto) 0.5 Eos # (Auto) 0.5 H Baso # (Auto) 0.1 Abs Immat Gran (auto) 0.11 H Absolute Neuts (auto) 7.1 H Absolute Nuclea
== END 2022-06-23 16:05 | disposition home or self-care (01) | DRG 418 ==
PROVIDERS: Internal Medicine Gastroenterology; Nurse Practitioner Family; Surgery; Admitting Provider Hospitalist; PCP Internal Medicine; Visit Provider Internal Medicine
PROC: 0FC98ZZ Extirpation of Matter from Common Bile Duct, Via Natural or Artificial Opening Endoscopic (ICD-10-PCS; CPT 43260; principal; 2022-06-19 14:15)
PROC: 0FT44ZZ Resection of Gallbladder, Percutaneous Endoscopic Approach (ICD-10-PCS; CPT 47562; principal; 2022-06-20 15:30)
DX: K85.10 Biliary acute pancreatitis without necrosis or infection (principal); K80.63 Calculus of gallbladder and bile duct with acute cholecystitis with obstruction; B15.9 Hepatitis A without hepatic coma; R19.8 Other specified symptoms and signs involving the digestive system and abdomen; F79 Unspecified intellectual disabilities; R74.01 Elevation of levels of liver transaminase levels; G40.909 Epilepsy, unspecified, not intractable, without status epilepticus; K31.7 Polyp of stomach and duodenum; K83.8 Other specified diseases of biliary tract; E66.9 Obesity, unspecified; Z68.32 Body mass index [BMI] 32.0-32.9, adult; Z86.718 Personal history of other venous thrombosis and embolism; Z79.01 Long term (current) use of anticoagulants
CPT/HCPCS: 36415; 71045; 74183; 74329; 76376; 80053; 80061; 82248; 83036; 83690; 83735; 83880; 85025; 85610; 85730; 86140; 86709; 86850; 86900; 86901; 87040; 88304; 97110; 97161; 97166; A9270; A9577; C9113; J0330; J1650; J2250; J2405; J2543; J2704; J3010; J7030; J7040; J7120